=== PATIENT | female | born 1955 | race Hispanic/Latino ===

== ENCOUNTER → 2017-10-18 | Outpatient (CLI) | payer OTHER, MEDICARE ==
[~2017-10-18] MED LIST: AEC81 PO; AMLO10TA2 PO; APIX5TAB PO; ASPI-1005 PO; ATOR10 PO; FURO40TA5 PO; HUM10VIA6 SQ; INS7030 SQ; LINA5TAB PO; LISI10TA7 PO; LUBI24CA2 PO; SERT50TA12 PO; ZOLP5TAB8 PO
[2017-10-18 13:53] LABS: CREATININE 2.4 mg/dL (0.5-1.5)
== END | disposition home or self-care (01) ==
LOC: LAB 13:08
PROVIDERS: ATTEND Internal Medicine Cardiovascular Disease
DX: I65.21 Occlusion and stenosis of right carotid artery (principal)
CPT/HCPCS: 36415; 82565; 84520

== ENCOUNTER → 2017-10-19 | Outpatient (CLI) | payer OTHER, MEDICARE ==
[2017-10-19] MEDS: SODIUM CHLORIDE 0.9% 1000ML 1,000 ML IV ONE (07:16)
== END | disposition home or self-care (01) ==
LOC: RAH 06:53
PROVIDERS: ATTEND Internal Medicine Cardiovascular Disease
DX: I65.21 Occlusion and stenosis of right carotid artery (principal); E11.22 Type 2 diabetes mellitus with diabetic chronic kidney disease; I12.9 Hypertensive chronic kidney disease with stage 1 through stage 4 chronic kidney disease, or unspecified chronic kidney disease; N18.4 Chronic kidney disease, stage 4 (severe); E78.5 Hyperlipidemia, unspecified; Z95.1 Presence of aortocoronary bypass graft; Z79.4 Long term (current) use of insulin; Z79.82 Long term (current) use of aspirin; Z79.899 Other long term (current) drug therapy
CPT/HCPCS: 82948; 96360; 96361; J7030

== ENCOUNTER → 2017-12-24 | Outpatient (CLI) | payer OTHER, MEDICARE ==
[~2017-12-24] VITALS: Ht 154.9 cm; Wt 107.0 kg
[~2017-12-24] MED LIST changes: +REGADENOSON 0.4 MG/5 ML PF SYG IVP SCH
== END | disposition home or self-care (01) ==
LOC: EDSTATUS 08:00 → SHCH 09:47
PROVIDERS: ATTEND Internal Medicine Cardiovascular Disease
DX: I25.10 Atherosclerotic heart disease of native coronary artery without angina pectoris (principal); I10 Essential (primary) hypertension
CPT/HCPCS: 78452; 93017; 96374; A9500 ×2; J2785

== ENCOUNTER 2018-01-14 12:37 | Observation (INO) | payer OTHER, MEDICARE ==
[~2018-01-14] VITALS: Ht 154.9 cm; Wt 104.9 kg
[~2018-01-14 12:37] MED LIST changes: -AEC81 PO; -FURO40TA5 PO; -HUM10VIA6 SQ; -LISI10TA7 PO; -REGADENOSON 0.4 MG/5 ML PF SYG IVP SCH; -SERT50TA12 PO
[2018-01-14 13:09] LABS: EOSINOPHILS % (AUTO) 1.5 % (0.0-8.0); HEMATOCRIT 32.9 % (36-48); LYMPHOCYTES % (AUTO) 20.9 % (21.0-51.0); MEAN CORPUSCULAR HEMOGLOBIN 27.1 pg (27.0-33.0); MEAN CORPUSCULAR HGB CONC 33.2 g/dL (32.0-36.0); MEAN CORPUSCULAR VOLUME 81.5 fL (79-99); MONOCYTES % (AUTO) 6.6 % (3.0-13.0); PLATELET COUNT (AUTO) 229 K/uL (130-400); RED BLOOD CELL COUNT(AUTO) 4.04 MIL/uL (4.00-5.50); RED CELL DISTRIBUTION WIDTH 14.6 % (11.0-15.5); WHITE BLOOD COUNT (AUTO) 6.9 K/uL (4.8-10.8)
[2018-01-14 13:16] LABS: CREATININE 2.6 mg/dL (0.5-1.5)
[2018-01-14 13:22] LABS: POTASSIUM 6.7 mmol/L (3.5-5.1)
[2018-01-14] MEDS ORDERED: SODIUM POLYSTYRENE SULFONATE 15 GM/60 ML ML ONE (13:52)
[2018-01-14 14:45] VITALS: BP 162/76
[2018-01-14] MEDS ORDERED: CLONIDINE HCL 0.1 MG TABLET PO PRN (15:00)
[2018-01-14] MEDS ORDERED: ACETAMINOPHEN 325 MG TAB PO PRN ×2 (15:00)
[2018-01-14] MEDS ORDERED: LACTULOSE 20 GM/30 ML UDCUP PO PRN (15:00)
[2018-01-14 16:00] VITALS: BP 175/78
[2018-01-14 16:17] LABS: APPEARANCE,URINE Clear (CLEAR); BILIRUBIN,URINE Negative (NEGATIVE); COLOR,URINE Yellow (YELLOW); GLUCOSE, URINE (UA) TRACE mg/dL (NEGATIVE); KETONES,URINE Negative (NEGATIVE); LEUKOCYTE ESTERASE ,URINE Trace (NEGATIVE); NITRATE,URINE Negative (NEGATIVE); OCCULT BLOOD,URINE Small (NEGATIVE); PH,URINE 6.5 (5.0-8.0); PROTEIN,URINE >=1000 (NEGATIVE); UROBILINOGEN,URINE 0.2 mg/dL (0.2-1.0)
[2018-01-14 16:27] LABS: BACTERIA,URINE Few /HPF (None Seen); MUCUS,URINE Rare LPF (None Seen); RBC,URINE 0-1 /HPF (0-1)
[2018-01-14] MEDS: INSULIN HUMULIN R 100 UNIT/ML 3ML SQ SCH ×2 (16:30→20:16)
[2018-01-14 19:32] VITALS: BP 174/81
[2018-01-14] MEDS ORDERED: SODIUM POLYSTYRENE SULFONATE 15 GM/60 ML ML PO PRN (19:45)
[2018-01-14 21:18] LABS: CREATININE 2.7 mg/dL (0.5-1.5); POTASSIUM 5.9 mmol/L (3.5-5.1)
[2018-01-14] MEDS ORDERED: CEFTRIAXONE 1GM/D5W 50ML 50 ML IV SCH (22:00)
[2018-01-14] MEDS ORDERED: LUBIPROSTONE 24 MCG CAP PO PRN (22:15)
[2018-01-14 23:23] VITALS: BP 150/77
[2018-01-15] VITALS (12 sets, daily range): BP systolic 101–170; BP diastolic 57–76
[2018-01-15 04:14] LABS: HEMOGLOBIN A1C 8.5 % (4.0-6.0)
[2018-01-15 04:34] LABS: ALBUMIN 2.3 g/dL (3.5-5.0); BILIRUBIN,TOTAL 0.2 mg/dL (0.2-1.0); CREATININE 2.5 mg/dL (0.5-1.5); MAGNESIUM 1.8 mg/dL (1.80-2.40); PHOSPHORUS 3.9 mg/dL (2.5-4.9); POTASSIUM 5.4 mmol/L (3.5-5.1); THYROID STIMULATING HORMONE 2.87 uIU/mL (0.36-3.74); TOTAL PROTEIN, SERUM 6.5 g/dL (6.0-8.3); URIC ACID 6.4 mg/dL (2.6-7.2)
[2018-01-15 04:40] LABS: % IRON SATURATION 24.7 % (22-44)
[2018-01-15] MEDS: INSULIN HUMULIN R 100 UNIT/ML 3ML SQ SCH ×4 (05:59→20:39)
[2018-01-15] MEDS: INSULIN HUMULIN 70/30 100 UNIT/ML 3ML SQ SCH (06:19)
[2018-01-15] MEDS ORDERED: ACETAMINOPHEN-CODEINE 300/30MG TAB PO PRN (07:30)
[2018-01-15] MEDS ORDERED: HYDRALAZINE HCL 20 MG/ML VIAL IV PRN (07:30)
[2018-01-15] MEDS ORDERED: ACETAMINOPHEN 325 MG TAB PO PRN ×2 (07:30)
[2018-01-15] MEDS ORDERED: LACTULOSE 20 GM/30 ML UDCUP PO PRN (07:30)
[2018-01-15] MEDS ORDERED: ONDANSETRON HCL 4 MG/2 ML VIAL IV PRN (07:30)
[2018-01-15] MEDS ORDERED: MORPHINE SULFATE 2 MG/ML 1ML SYG IV PRN (07:30)
[2018-01-15] MEDS ORDERED: MAG HYDROX/AL HYDROX/SIMETH ES 30 ML SUSP UDCUP PO PRN (07:30)
[2018-01-15] MEDS ORDERED: GUAIFENESIN-DM 200/20 MG 10 ML PO PRN (07:30)
[2018-01-15] MEDS ORDERED: NITROGLYCERIN 0.4 MG SL TAB SL PRN (07:30)
[2018-01-15] MEDS: AMLODIPINE BESYLATE 5 MG TAB PO SCH (08:54)
[2018-01-15] MEDS: ASPIRIN 81MG TAB.CHEW PO SCH (08:54)
[2018-01-15] MEDS: CEFTRIAXONE SODIUM 1 GM IVP SCH (08:56)
[2018-01-15] MEDS ORDERED: FAMOTIDINE 20MG TAB 20 MG TAB PO SCH (09:00)
[2018-01-15] MEDS ORDERED: APIXABAN 5 MG TABLET PO SCH (09:00)
[2018-01-15] MEDS: FOLIC ACID/VITAMIN B COMP W-C 1 MG CAPSULE PO SCH (09:00)
[2018-01-15] MEDS: FAMOTIDINE 20MG TAB 20 MG TAB PO SCH (09:00)
[2018-01-15] MEDS: LINAGLIPTIN 5 MG TABLET PO SCH (09:00)
[2018-01-15] MEDS ORDERED: SODIUM CHLORIDE 0.9% 1000ML 1,000 ML IV SCH (11:45)
[2018-01-15] MEDS ORDERED: ONDANSETRON HCL MDV 20ML 2 MG/ML VIAL IV PRN (12:42)
[2018-01-15 14:38] LABS: CREATININE 2.5 mg/dL (0.5-1.5); POTASSIUM 5.5 mmol/L (3.5-5.1)
[2018-01-15] MEDS: SODIUM CHLORIDE 0.9% 1000ML 1,000 ML IV SCH ×2 (17:34→23:25)
[2018-01-15] MEDS: RANOLAZINE 500 MG TAB.SR.12H PO SCH (19:59)
[2018-01-15] MEDS: METOPROLOL TARTRATE 25 MG TAB PO SCH (19:59)
[2018-01-15] MEDS ORDERED: ATORVASTATIN CALCIUM 10 MG TABLET PO SCH (21:00)
[2018-01-16 03:59] LABS: HEMATOCRIT 31.1 % (36-48); MEAN CORPUSCULAR HEMOGLOBIN 27.4 pg (27.0-33.0); MEAN CORPUSCULAR HGB CONC 33.2 g/dL (32.0-36.0); MEAN CORPUSCULAR VOLUME 82.3 fL (79-99); PLATELET COUNT (AUTO) 206 K/uL (130-400); RED BLOOD CELL COUNT(AUTO) 3.78 MIL/uL (4.00-5.50); RED CELL DISTRIBUTION WIDTH 14.6 % (11.0-15.5)
[2018-01-16 04:01] VITALS: BP 154/70
[2018-01-16 04:17] LABS: CREATININE 2.6 mg/dL (0.5-1.5); POTASSIUM 5.2 mmol/L (3.5-5.1)
[2018-01-16] MEDS: INSULIN HUMULIN 70/30 100 UNIT/ML 3ML SQ SCH (05:43)
[2018-01-16] MEDS: INSULIN HUMULIN R 100 UNIT/ML 3ML SQ SCH (05:44)
[2018-01-16 07:50] VITALS: BP 138/71
[2018-01-16] MEDS: FAMOTIDINE 20MG TAB 20 MG TAB PO SCH (07:50)
[2018-01-16] MEDS: AMLODIPINE BESYLATE 5 MG TAB PO SCH (07:50)
[2018-01-16] MEDS: RANOLAZINE 500 MG TAB.SR.12H PO SCH (07:50)
[2018-01-16] MEDS: FOLIC ACID/VITAMIN B COMP W-C 1 MG CAPSULE PO SCH (07:50)
[2018-01-16] MEDS: LINAGLIPTIN 5 MG TABLET PO SCH (07:50)
[2018-01-16] MEDS: METOPROLOL TARTRATE 25 MG TAB PO SCH (07:50)
[2018-01-16] MEDS: ASPIRIN 81MG TAB.CHEW PO SCH (07:50)
[2018-01-16] MEDS: CEFTRIAXONE SODIUM 1 GM IVP SCH (07:51)
== END 2018-01-16 11:05 | disposition home or self-care (01) ==
LOC: EDH 12:37 → EDHIP 13:49 → INTOOBSV 13:49 → 2DH 14:43
PROVIDERS: ADMIT Family Medicine; ATTEND Family Medicine
DX: I25.119 Atherosclerotic heart disease of native coronary artery with unspecified angina pectoris (principal); I65.21 Occlusion and stenosis of right carotid artery; E87.5 Hyperkalemia; N17.9 Acute kidney failure, unspecified; N39.0 Urinary tract infection, site not specified; I12.9 Hypertensive chronic kidney disease with stage 1 through stage 4 chronic kidney disease, or unspecified chronic kidney disease; N18.3 Chronic kidney disease, stage 3 (moderate); E78.5 Hyperlipidemia, unspecified; E11.22 Type 2 diabetes mellitus with diabetic chronic kidney disease; D64.9 Anemia, unspecified; E11.21 Type 2 diabetes mellitus with diabetic nephropathy; E11.51 Type 2 diabetes mellitus with diabetic peripheral angiopathy without gangrene; I35.0 Nonrheumatic aortic (valve) stenosis; Z79.01 Long term (current) use of anticoagulants; Z79.82 Long term (current) use of aspirin; Z79.899 Other long term (current) drug therapy; Z95.1 Presence of aortocoronary bypass graft; Z82.49 Family history of ischemic heart disease and other diseases of the circulatory system
CPT/HCPCS: 36223; 36415 ×5; 71045; 76770; 80048 ×4; 80053; 80061; 81001 ×2; 82728; 82948 ×7; 83036; 83540; 83550; 83735; 84100; 84132 ×2; 84443; 84550; 85025 ×2; 85027; 85610; 85730; 93005 ×2; 93459; 96365; 96372 ×2; 96375; 96376; 99285; A4218; C1760; C1894; G0378 ×45; J0696 ×3; J1644; J1815 ×4; J3490 ×4; J7030; Q9967; 36222; 36226

== ENCOUNTER 2018-02-08 23:36 | Emergency (ER) | payer OTHER, MEDICARE ==
[~2018-02-08 23:36] MED LIST changes: -ZOLP5TAB8 PO
[2018-02-09 00:02] LABS: BASOPHILS % (AUTO) 0.8 % (0.0-5.0); EOSINOPHILS % (AUTO) 1.1 % (0.0-8.0); HEMATOCRIT 31.8 % (36-48); LYMPHOCYTES % (AUTO) 15.5 % (21.0-51.0); MEAN CORPUSCULAR HEMOGLOBIN 27.4 pg (27.0-33.0); MEAN CORPUSCULAR HGB CONC 33.4 g/dL (32.0-36.0); MONOCYTES % (AUTO) 7.8 % (3.0-13.0); NEUTROPHILS % (AUTO) 74.8 % (40.0-77.0); PLATELET COUNT (AUTO) 247 K/uL (130-400); RED BLOOD CELL COUNT(AUTO) 3.87 MIL/uL (4.00-5.50); RED CELL DISTRIBUTION WIDTH 14.8 % (11.0-15.5); WHITE BLOOD COUNT (AUTO) 10.1 K/uL (4.8-10.8)
[2018-02-09 00:10] LABS: APPEARANCE,URINE Clear (CLEAR); BILIRUBIN,URINE Negative (NEGATIVE); COLOR,URINE Yellow (YELLOW); GLUCOSE, URINE (UA) 500 mg/dL (NEGATIVE); KETONES,URINE Negative (NEGATIVE); LEUKOCYTE ESTERASE ,URINE Negative (NEGATIVE); NITRATE,URINE Negative (NEGATIVE); OCCULT BLOOD,URINE Small (NEGATIVE); PH,URINE 6.5 (5.0-8.0); PROTEIN,URINE >=1000 (NEGATIVE); UROBILINOGEN,URINE 0.2 mg/dL (0.2-1.0)
[2018-02-09 00:11] LABS: CREATININE 2.6 mg/dL (0.5-1.5); POTASSIUM 5.2 mmol/L (3.5-5.1)
[2018-02-09 00:14] LABS: INR 0.96 (0.85-1.15); PARTIAL THROMBOPLASTIN TIME 28.5 SEC (26.3-35.5); PROTHROMBIN TIME 10.1 SEC (9.6-11.6)
[2018-02-09 00:16] LABS: ALBUMIN 2.6 g/dL (3.5-5.0); BILIRUBIN,TOTAL 0.4 mg/dL (0.2-1.0); TOTAL PROTEIN, SERUM 7.8 g/dL (6.0-8.3)
[2018-02-09 00:25] LABS: BACTERIA,URINE Rare /HPF (None Seen); SQUAMOUS EPITHELIAL CELL,UR 0-2 /HPF (0-2)
[2018-02-09 00:50] LABS: B-TYPE NATRIURETIC PEPTIDE 966 pg/mL (0-100)
[2018-02-09] MEDS ORDERED: ASPIRIN 325 MG TABLET ONE (01:38)
[2018-02-09] MEDS ORDERED: FUROSEMIDE 10 MG/ML 4ML VIAL ONE (01:38)
[2018-02-09] MEDS ORDERED: NITROGLYCERIN 1GM/1 INCH PACKET TD ONE (01:39)
== END 2018-02-09 02:56 | disposition home or self-care (01) ==
LOC: EDH 23:36
DX: I50.41 Acute combined systolic (congestive) and diastolic (congestive) heart failure (principal); N28.9 Disorder of kidney and ureter, unspecified; E11.9 Type 2 diabetes mellitus without complications; I10 Essential (primary) hypertension; E78.5 Hyperlipidemia, unspecified; Z95.1 Presence of aortocoronary bypass graft; Z98.51 Tubal ligation status; Z79.899 Other long term (current) drug therapy
CPT/HCPCS: 36415; 71045; 80053; 81001; 82550; 83880; 84484 ×2; 85025; 85610; 85730; 93005 ×2; 96374; 99285; J1940

== ENCOUNTER → 2018-03-13 | Outpatient (CLI) | payer OTHER, MEDICARE | END | disposition home or self-care (01) | LOC: SHCH 13:33 | PROVIDERS: ATTEND Internal Medicine Cardiovascular Disease | DX: I82.403 Acute embolism and thrombosis of unspecified deep veins of lower extremity, bilateral (principal); I82.409 Acute embolism and thrombosis of unspecified deep veins of unspecified lower extremity; E11.9 Type 2 diabetes mellitus without complications; I10 Essential (primary) hypertension; E78.5 Hyperlipidemia, unspecified | CPT/HCPCS: 93970 ==

== ENCOUNTER 2019-01-20 08:41 | Observation (INO) | payer OTHER, MEDICARE ==
[~2019-01-20] VITALS: Ht 154.9 cm; Wt 92.0 kg
[~2019-01-20 08:41] MED LIST changes: -AMLO10TA2 PO; +AMLO10TA7 PO; -APIX5TAB PO; +CLOP75TA32 PO; -LINA5TAB PO; +LISI-613 PO; +TIZA4TAB4 PO; +ZOLP5TAB8 PO
[2019-01-20 09:05] LABS: BASOPHILS % (AUTO) 0.9 % (0.0-5.0); EOSINOPHILS % (AUTO) 2.8 % (0.0-8.0); HEMATOCRIT 34.8 % (36-48); LYMPHOCYTES % (AUTO) 13.7 % (21.0-51.0); MEAN CORPUSCULAR HEMOGLOBIN 28.5 pg (27.0-33.0); MEAN CORPUSCULAR HGB CONC 32.6 g/dL (32.0-36.0); MEAN CORPUSCULAR VOLUME 87.2 fL (79-99); MONOCYTES % (AUTO) 7.2 % (3.0-13.0); NEUTROPHILS % (AUTO) 75.4 % (40.0-77.0); PLATELET COUNT (AUTO) 189 K/uL (130-400); RED BLOOD CELL COUNT(AUTO) 3.99 MIL/uL (4.00-5.50); RED CELL DISTRIBUTION WIDTH 14.2 % (11.0-15.5); WHITE BLOOD COUNT (AUTO) 7.3 K/uL (4.8-10.8)
[2019-01-20 09:45] LABS: B-TYPE NATRIURETIC PEPTIDE 851 pg/mL (0-100)
[2019-01-20 11:54] LABS: BILIRUBIN,TOTAL 0.4 mg/dL (0.2-1.0); CREATININE 5.5 mg/dL (0.5-1.5); POTASSIUM 4.8 mmol/L (3.5-5.1); TOTAL PROTEIN, SERUM 7.5 g/dL (6.0-8.3)
--- NOTE | 2019-01-20 14:00 | NUR ---
REPORT RECEIVED FROM AL LLOYD (ED). PATIENT ADMITTED UNDER DR. HARJIT KATZ FOR FLUID OVERLOAD AND PULMONARY EDEMA. PATIENT SCHEDULED FOR DIALYSIS TODAY. 20G PIV TO RIGHT HAND. DR. TESFAYE MORIN CONSULTED.
[2019-01-20 14:30] VITALS: BP 150/59
[2019-01-20] MEDS ORDERED: GLUCAGON 1MG KIT 1 MG ML IM PRN (16:00)
[2019-01-20] MEDS ORDERED: DEXTROSE 50%-WATER 50 ML DISP.SYRIN IV PRN (16:00)
[2019-01-20] MEDS: PANTOPRAZOLE SODIUM 40 MG TABLET.DR PO SCH (16:06)
[2019-01-20] MEDS: ENOXAPARIN SODIUM 40 MG/0.4 ML SYRINGE SQ SCH (16:06)
[2019-01-20] MEDS ORDERED: SODIUM CHLORIDE 0.9% 10 ML VIAL IVP PRN (16:15)
[2019-01-20] MEDS: INSULIN HUMULIN R 100 UNIT/ML 3ML SQ SCH ×2 (16:30→21:00)
[2019-01-20] MEDS ORDERED: ACETAMINOPHEN 325 MG TAB PO PRN (18:45)
[2019-01-20] MEDS ORDERED: 0.9% SODIUM CHLORIDE 1000 ML IV BAG IV PRN (18:45)
[2019-01-20] MEDS ORDERED: SODIUM CHLORIDE 0.9% 1000ML 1,000 ML IV PRN (18:45)
[2019-01-20] MEDS ORDERED: HEPARIN SODIUM 5000UNIT/ML 1ML VIAL IJ PRN (18:45)
[2019-01-20 20:00] VITALS: BP_SYST 138; BP_SYST 174; BP_DIAS 76; BP_DIAS 88
[2019-01-21] VITALS: BP 139/72
[2019-01-21 04:00] VITALS: BP 138/68
[2019-01-21 05:25] LABS: HEMATOCRIT 31.9 % (36-48); MEAN CORPUSCULAR HEMOGLOBIN 29.1 pg (27.0-33.0); MEAN CORPUSCULAR HGB CONC 33.6 g/dL (32.0-36.0); MEAN CORPUSCULAR VOLUME 86.6 fL (79-99); PLATELET COUNT (AUTO) 192 K/uL (130-400); RED BLOOD CELL COUNT(AUTO) 3.68 MIL/uL (4.00-5.50); RED CELL DISTRIBUTION WIDTH 14.3 % (11.0-15.5); WHITE BLOOD COUNT (AUTO) 5.7 K/uL (4.8-10.8)
[2019-01-21] MEDS: INSULIN HUMULIN R 100 UNIT/ML 3ML SQ SCH ×3 (06:13→11:30)
[2019-01-21 08:00] VITALS: BP 128/58
[2019-01-21] MEDS: ENOXAPARIN SODIUM 40 MG/0.4 ML SYRINGE SQ SCH (09:00)
[2019-01-21] MEDS: PANTOPRAZOLE SODIUM 40 MG TABLET.DR PO SCH (09:00)
[2019-01-21 12:00] VITALS: BP 118/64
--- NOTE | 2019-01-21 14:50 | NUR ---
DISCHARGE PATIENT GIVEN DISCHARGE INSTRUCTIONS VIA TEACH BACK. 20G PIV TO RIGHT HAND DISCONTINUED, TP INTACT. PATIENT TO FOLLOW UP WITH DR. JACQUES AND KEEP DIALYSIS SCHEDULE. PATIENT STABLE AT THIS TIME. DAUGHTER AT BEDSIDE TO TRANSPORT PATIENT HOME.
[2019-01-22 11:19] LABS: HEPATITIS Bs ANTIGEN SCREEN P Negative (Negative)
== END 2019-01-21 14:58 | disposition home or self-care (01) ==
LOC: EDH 08:41 → EDHIP 12:07 → 3CH 13:50
PROVIDERS: ADMIT Internal Medicine; ATTEND Internal Medicine
DX: J81.1 Chronic pulmonary edema (principal); I12.0 Hypertensive chronic kidney disease with stage 5 chronic kidney disease or end stage renal disease; N18.6 End stage renal disease; E11.22 Type 2 diabetes mellitus with diabetic chronic kidney disease; I25.10 Atherosclerotic heart disease of native coronary artery without angina pectoris; D64.9 Anemia, unspecified; E87.70 Fluid overload, unspecified; Z91.11 Patient's noncompliance with dietary regimen; Z82.49 Family history of ischemic heart disease and other diseases of the circulatory system; Z83.3 Family history of diabetes mellitus; Z91.19 Patient's noncompliance with other medical treatment and regimen; Z95.1 Presence of aortocoronary bypass graft; Z99.2 Dependence on renal dialysis
CPT/HCPCS: G0257 ×46; 36415; 71045; 80053; 82948; 83880; 84484; 85025; 85027; 86706; 87340; 87520; 90935; 93005; 99291; G0378; J1644

== ENCOUNTER 2019-04-04 16:10 | Emergency (ER) | payer OTHER, MEDICARE ==
[~2019-04-04 16:10] MED LIST changes: -TIZA4TAB4 PO
[2019-04-04] MEDS ORDERED: LIDOCAINE HCL 1% MDV 50ML VIAL ONE (17:22)
== END 2019-04-04 19:00 | disposition home or self-care (01) ==
LOC: EDH 16:10
DX: T82.41XA Breakdown (mechanical) of vascular dialysis catheter, initial encounter (principal); I12.0 Hypertensive chronic kidney disease with stage 5 chronic kidney disease or end stage renal disease; E11.22 Type 2 diabetes mellitus with diabetic chronic kidney disease; N18.6 End stage renal disease; E78.5 Hyperlipidemia, unspecified; I25.10 Atherosclerotic heart disease of native coronary artery without angina pectoris; Z99.2 Dependence on renal dialysis
CPT/HCPCS: 36589; 99284; J3490

== ENCOUNTER 2019-04-07 09:26 | Day surgery (SDC) | payer OTHER, MEDICARE ==
[~2019-04-07] VITALS: Ht 154.9 cm; Wt 93.0 kg
[2019-04-07 09:50] VITALS: BP 156/85
[2019-04-07 10:06] LABS: BASOPHILS % (AUTO) 1.2 % (0.0-5.0); EOSINOPHILS % (AUTO) 2.3 % (0.0-8.0); HEMATOCRIT 34.6 % (36-48); LYMPHOCYTES % (AUTO) 16.9 % (21.0-51.0); MEAN CORPUSCULAR HEMOGLOBIN 29.2 pg (27.0-33.0); MEAN CORPUSCULAR HGB CONC 32.5 g/dL (32.0-36.0); MEAN CORPUSCULAR VOLUME 90.1 fL (79-99); MONOCYTES % (AUTO) 7.2 % (3.0-13.0); NEUTROPHILS % (AUTO) 72.4 % (40.0-77.0); NUCLEATED RED BLOOD CELLS 0.2 % (0.0-0.19); PLATELET COUNT (AUTO) 262 K/uL (130-400); RED BLOOD CELL COUNT(AUTO) 3.84 MIL/uL (4.00-5.50); RED CELL DISTRIBUTION WIDTH 17.1 % (11.0-15.5); WHITE BLOOD COUNT (AUTO) 7.8 K/uL (4.8-10.8)
[2019-04-07 10:15] LABS: CREATININE 6.1 mg/dL (0.5-1.5); POTASSIUM 4.5 mmol/L (3.5-5.1)
[2019-04-07 10:18] LABS: INR 1.02 (0.85-1.15); PARTIAL THROMBOPLASTIN TIME 26.1 SEC (26.3-35.5); PROTHROMBIN TIME 10.7 SEC (9.6-11.6)
[2019-04-07] MEDS ORDERED: SODIUM CHLORIDE 0.9% 1000ML 1,000 ML IV ONE (10:32)
[2019-04-07] MEDS ORDERED: LIDOCAINE HCL 1% MDV 50ML VIAL ONE (11:05)
[2019-04-07] MEDS ORDERED: IODIXANOL 320 MG/ML 100 ML VIAL ONE (12:21)
[2019-04-07 13:15] VITALS: BP 125/59
[2019-04-07 13:45] VITALS: BP 130/70
== END 2019-04-07 14:00 | disposition home or self-care (01) ==
LOC: DAH 09:26
PROVIDERS: ATTEND Emergency Medicine
DX: T82.898A Other specified complication of vascular prosthetic devices, implants and grafts, initial encounter (principal); Y83.8 Other surgical procedures as the cause of abnormal reaction of the patient, or of later complication, without mention of misadventure at the time of the procedure; Y92.89 Other specified places as the place of occurrence of the external cause; I25.10 Atherosclerotic heart disease of native coronary artery without angina pectoris; I12.0 Hypertensive chronic kidney disease with stage 5 chronic kidney disease or end stage renal disease; E11.22 Type 2 diabetes mellitus with diabetic chronic kidney disease; N18.6 End stage renal disease; E78.5 Hyperlipidemia, unspecified; Z99.2 Dependence on renal dialysis; Z79.899 Other long term (current) drug therapy; Z79.82 Long term (current) use of aspirin; Z79.4 Long term (current) use of insulin; Z98.51 Tubal ligation status; Z98.890 Other specified postprocedural states; Z82.49 Family history of ischemic heart disease and other diseases of the circulatory system; Z83.3 Family history of diabetes mellitus
CPT/HCPCS: 36415; 36558; 77001; 80048; 82948; 85025; 85610; 85730; A4606; C1750; C1769 ×2; C1894; J1644 ×2; J3490; J7030; Q9967; 37248

== ENCOUNTER 2019-04-13 17:34 | Emergency (ER) | payer OTHER, MEDICARE ==
[2019-04-13 18:15] LABS: BASOPHILS % (AUTO) 0.7 % (0.0-5.0); EOSINOPHILS % (AUTO) 1.1 % (0.0-8.0); HEMATOCRIT 35.7 % (36-48); LYMPHOCYTES % (AUTO) 14.7 % (21.0-51.0); MEAN CORPUSCULAR HEMOGLOBIN 29.4 pg (27.0-33.0); MEAN CORPUSCULAR HGB CONC 32.5 g/dL (32.0-36.0); MEAN CORPUSCULAR VOLUME 90.4 fL (79-99); MONOCYTES % (AUTO) 7.6 % (3.0-13.0); NEUTROPHILS % (AUTO) 75.9 % (40.0-77.0); NUCLEATED RED BLOOD CELLS 0.1 % (0.0-0.19); PLATELET COUNT (AUTO) 203 K/uL (130-400); RED BLOOD CELL COUNT(AUTO) 3.95 MIL/uL (4.00-5.50); WHITE BLOOD COUNT (AUTO) 5.8 K/uL (4.8-10.8)
[2019-04-13 18:23] LABS: CREATININE 7.6 mg/dL (0.5-1.5); POTASSIUM 4.7 mmol/L (3.5-5.1)
[2019-04-13 18:24] LABS: INR 1.01 (0.85-1.15); PARTIAL THROMBOPLASTIN TIME 24.2 SEC (26.3-35.5); PROTHROMBIN TIME 10.6 SEC (9.6-11.6)
[2019-04-13 18:28] LABS: ALBUMIN 3.3 g/dL (3.5-5.0); BILIRUBIN,TOTAL 0.7 mg/dL (0.2-1.0); TOTAL PROTEIN, SERUM 7.6 g/dL (6.0-8.3)
[2019-04-13 19:01] LABS: B-TYPE NATRIURETIC PEPTIDE 2380 pg/mL (0-100)
== END 2019-04-13 20:01 | disposition home or self-care (01) ==
LOC: EDH 17:34
DX: I12.0 Hypertensive chronic kidney disease with stage 5 chronic kidney disease or end stage renal disease (principal); E11.22 Type 2 diabetes mellitus with diabetic chronic kidney disease; N18.6 End stage renal disease; R06.00 Dyspnea, unspecified; I25.10 Atherosclerotic heart disease of native coronary artery without angina pectoris; E78.5 Hyperlipidemia, unspecified; Z99.2 Dependence on renal dialysis; Z79.4 Long term (current) use of insulin
CPT/HCPCS: 36415; 71045; 80053; 82550; 83880; 84484; 85025; 85610; 85730; 93005

== ENCOUNTER 2019-08-12 15:11 | Emergency (ER) | payer OTHER, MEDICARE ==
[2019-08-12 17:15] LABS: CREATININE 6.7 mg/dL (0.5-1.5); POTASSIUM 4.4 mmol/L (3.5-5.1)
[2019-08-12 17:31] LABS: BASOPHILS % (AUTO) 1.1 % (0.0-5.0); EOSINOPHILS % (AUTO) 3.5 % (0.0-8.0); HEMATOCRIT 35.5 % (36-48); LYMPHOCYTES % (AUTO) 11.8 % (21.0-51.0); MEAN CORPUSCULAR HEMOGLOBIN 30.4 pg (27.0-33.0); MEAN CORPUSCULAR HGB CONC 32.6 g/dL (32.0-36.0); MEAN CORPUSCULAR VOLUME 93.2 fL (79-99); MONOCYTES % (AUTO) 10.1 % (3.0-13.0); NEUTROPHILS % (AUTO) 73.5 % (40.0-77.0); NUCLEATED RED BLOOD CELLS 0.2 % (0.0-0.19); PLATELET COUNT (AUTO) 144 K/uL (130-400); RED BLOOD CELL COUNT(AUTO) 3.81 MIL/uL (4.00-5.50); RED CELL DISTRIBUTION WIDTH 17.1 % (11.0-15.5); WHITE BLOOD COUNT (AUTO) 4.7 K/uL (4.8-10.8)
== END 2019-08-12 18:07 | disposition home or self-care (01) ==
LOC: EDH 15:11
DX: J20.8 Acute bronchitis due to other specified organisms (principal); I12.0 Hypertensive chronic kidney disease with stage 5 chronic kidney disease or end stage renal disease; E11.22 Type 2 diabetes mellitus with diabetic chronic kidney disease; N18.6 End stage renal disease; I25.10 Atherosclerotic heart disease of native coronary artery without angina pectoris; Z99.2 Dependence on renal dialysis
CPT/HCPCS: 36415; 71046; 80048; 84484; 85025; 93005

== ENCOUNTER → 2019-09-22 | Outpatient (CLI) | payer OTHER, MEDICARE ==
[~2019-09-22] MED LIST changes: +IOHEXOL-350 50ML VIAL IV ONE
== END | disposition home or self-care (01) ==
LOC: RAH 08:55
PROVIDERS: ATTEND Internal Medicine Cardiovascular Disease
DX: I65.23 Occlusion and stenosis of bilateral carotid arteries (principal); Z98.890 Other specified postprocedural states
CPT/HCPCS: 70498; Q9967

== ENCOUNTER → 2019-10-22 | Outpatient (CLI) | payer OTHER, MEDICARE ==
[~2019-10-22] MED LIST changes: -IOHEXOL-350 50ML VIAL IV ONE
== END | disposition home or self-care (01) ==
LOC: SHCH 08:43
PROVIDERS: ATTEND Internal Medicine Cardiovascular Disease
DX: I08.3 Combined rheumatic disorders of mitral, aortic and tricuspid valves (principal); R01.1 Cardiac murmur, unspecified
CPT/HCPCS: 93306

== ENCOUNTER 2019-11-25 05:37 | Day surgery (SDC) | payer OTHER, MEDICARE ==
[2019-11-20 11:26] LABS: BASOPHILS % (AUTO) 0.2 % (0.0-5.0); EOSINOPHILS % (AUTO) 0.6 % (0.0-8.0); HEMATOCRIT 37.4 % (36-48); LYMPHOCYTES % (AUTO) 10.4 % (21.0-51.0); MEAN CORPUSCULAR HEMOGLOBIN 29.8 pg (27.0-33.0); MEAN CORPUSCULAR HGB CONC 30.2 g/dL (32.0-36.0); MEAN CORPUSCULAR VOLUME 98.7 fL (79-99); MONOCYTES % (AUTO) 7.5 % (3.0-13.0); PLATELET COUNT (AUTO) 129 K/uL (130-400); RED BLOOD CELL COUNT(AUTO) 3.79 MIL/uL (4.00-5.50); RED CELL DISTRIBUTION WIDTH 13.8 % (11.0-15.5); WHITE BLOOD COUNT (AUTO) 8.7 K/uL (4.8-10.8)
[2019-11-20 11:27] VITALS: BP 124/70
[2019-11-20 11:27] LABS: APPEARANCE,URINE Clear (CLEAR); BILIRUBIN,URINE Negative (NEGATIVE); COLOR,URINE Yellow (YELLOW); GLUCOSE, URINE (UA) 500 mg/dL (NEGATIVE); KETONES,URINE Negative (NEGATIVE); LEUKOCYTE ESTERASE ,URINE Negative (NEGATIVE); NITRATE,URINE Negative (NEGATIVE); OCCULT BLOOD,URINE Small (NEGATIVE); PH,URINE 6.5 (5.0-8.0); PROTEIN,URINE >=1000 mg/dL (NEGATIVE)
[2019-11-20 11:35] LABS: CREATININE 5.3 mg/dL (0.5-1.5); POTASSIUM 4.1 mmol/L (3.5-5.1)
[2019-11-20 11:43] LABS: INR 1.12 (0.85-1.15); PARTIAL THROMBOPLASTIN TIME 26.4 SEC (26.3-35.5); PROTHROMBIN TIME 11.7 SEC (9.6-11.6)
[2019-11-20 11:46] LABS: BACTERIA,URINE Few /HPF (None Seen); YEAST,URINE BUDDING Few /HPF (None Seen)
--- NOTE | 2019-11-24 14:52 | NUR ---
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 I ALSO ADVISED GLORY BUTLER OF CHEST XRAY RESULTS OF LEFT LINGULAR CONSOLIDATION AND OR MASS AND RETROCARDIAC OPACITY, NO NEW ORDERS IN REGARDS TO CHEST XRAY.
[2019-11-25] VITALS (12 sets, daily range): BP systolic 141–155; BP diastolic 47–67
[~2019-11-25] VITALS: Ht 162.6 cm; Wt 87.5 kg
[~2019-11-25 05:37] MED LIST changes: -AMLO10TA7 PO; +APIX5TAB PO; -ASPI-1005 PO; -ATOR10 PO; -CLOP75TA32 PO; -LISI-613 PO; -LUBI24CA2 PO; +METO50TA9 PO; +METO5TAB7 PO
[2019-11-25] MEDS ORDERED: ATOR10 PO (06:24)
[2019-11-25] MEDS ORDERED: HUM10VIA SQ (06:56)
[2019-11-25] MEDS ORDERED: HEPARIN SODIUM 1000UNIT/ML 10ML VIAL ONE (07:08)
[2019-11-25] MEDS ORDERED: IODIXANOL 320 MG/ML 100 ML VIAL ONE (07:08)
[2019-11-25] MEDS ORDERED: LIDOCAINE HCL 2% 20ML ONE (07:08)
[2019-11-25] MEDS ORDERED: SODIUM BICARB 50MEQ 50ML VIAL ONE (07:09)
[2019-11-25] MEDS ORDERED: SODIUM CHLORIDE 0.9% 1000ML 1,000 ML IV ONE (07:36)
[2019-11-25] MEDS ORDERED: IOHEXOL-350 50ML VIAL IV ONE (07:36)
[2019-11-25] MEDS ORDERED: NITROGLYCERIN 2 MG/VIAL VIAL IV ONE (08:13)
[2019-11-25] MEDS ORDERED: ASPI-555 PO (08:26)
[2019-11-25] MEDS ORDERED: DEXTROSE 50%-WATER 50 ML DISP.SYRIN IV PRN (08:30)
[2019-11-25] MEDS ORDERED: GLUCAGON 1MG KIT 1 MG ML IM PRN (08:30)
[2019-11-25] MEDS ORDERED: SODIUM CHLORIDE 0.9% 10 ML VIAL IVP SCH (08:30)
--- NOTE | 2019-11-25 09:20 | NUR ---
Blood sugar noted to be 63. Patient asymptomatic. Pt given apple juice and drank all 120 ccs. Breakfast ordered and student assisted pt in eating as pt has to lay flat for bedrest.
--- NOTE | 2019-11-25 10:55 | NUR ---
Pt ate good breakfast. Pt's blood sugar rechecked. Noted to be 110.
[2019-11-25] MEDS ORDERED: INSULIN HUMULIN R 100 UNIT/ML 3ML SQ SCH (11:30)
--- NOTE | 2019-11-25 14:40 | NUR ---
Pt discharged home, tolerating fluids/solids, voided good amount prior to discharge, ambulating well. Pt denies any severe pain, nausea or dizziness. Pt already taking baby aspirin. Pt instructed to disregard new prescription and to continue taking 81 mg daily. PT instructed in routine and emergency care of cath site, translated by her daughter. Pt and daughter verbalize understanding. Site to right groin remains soft, non-tender, dressing clean dry and intact. Pt and daughter report no further questions at this time. Addendum: 11/25/19 at 1721 by FAB POLO RN RN I was unable to get a hold of Dr. Watson's field clerk. Pt and daughter instructed to call office for 1 to 2 week follow up appointment.
--- NOTE | 2019-11-25 16:45 | NUR ---
Pt's demographics, h&P, and carotid angiogram results faxed to Dr. Cox office. Office called prior to faxing results and they stated that they would call with pt's date of appointment.
== END 2019-11-25 14:40 | disposition home or self-care (01) ==
LOC: DAH 05:37
PROVIDERS: ATTEND Internal Medicine Cardiovascular Disease
DX: I65.21 Occlusion and stenosis of right carotid artery (principal); I25.10 Atherosclerotic heart disease of native coronary artery without angina pectoris; I12.0 Hypertensive chronic kidney disease with stage 5 chronic kidney disease or end stage renal disease; E11.22 Type 2 diabetes mellitus with diabetic chronic kidney disease; N18.6 End stage renal disease; I45.10 Unspecified right bundle-branch block; Z79.82 Long term (current) use of aspirin; Z79.899 Other long term (current) drug therapy; Z79.01 Long term (current) use of anticoagulants; Z95.1 Presence of aortocoronary bypass graft; Z99.2 Dependence on renal dialysis; Z90.710 Acquired absence of both cervix and uterus; Z98.890 Other specified postprocedural states
CPT/HCPCS: 36223; 36415; 71045; 80048; 81001; 82948 ×3; 85025; 85610; 85730; 93005; A4215; A4216; A4221; A4222; A4223 ×3; A4606; A4663; C1760; C1894; J1644; J3490 ×3; J7030; Q9967

== ENCOUNTER → 2020-12-23 | Outpatient (CLI) | payer OTHER, MEDICARE ==
[~2020-12-23] MED LIST changes: +AMLO-258 PO; +ATOR10 PO; +CLOP75TA32 PO; +CYAN500T9 PO; +HUM10VIA SQ; +HYDR-3421 PO; +LUBI24CA2 PO; -METO50TA9 PO; +SERT-438 PO; +SEVE800T27 PO
== END | disposition home or self-care (01) ==
LOC: SHCH 10:00
PROVIDERS: ATTEND Internal Medicine Cardiovascular Disease
DX: I07.1 Rheumatic tricuspid insufficiency (principal); R01.1 Cardiac murmur, unspecified; E78.5 Hyperlipidemia, unspecified; E11.9 Type 2 diabetes mellitus without complications; I27.20 Pulmonary hypertension, unspecified
CPT/HCPCS: 93306; 93356

== ENCOUNTER → 2021-01-11 | Outpatient (CLI) | payer OTHER, MEDICARE | END | disposition home or self-care (01) | LOC: SHCH 10:00 | PROVIDERS: ATTEND Internal Medicine Cardiovascular Disease | DX: R01.1 Cardiac murmur, unspecified (principal); I25.10 Atherosclerotic heart disease of native coronary artery without angina pectoris | CPT/HCPCS: 93880 ==

== ENCOUNTER → 2021-01-25 | Outpatient (CLI) | payer OTHER, MEDICARE ==
[~2021-01-25] VITALS: Ht 154.9 cm; Wt 81.2 kg
[~2021-01-25] MED LIST changes: +REGADENOSON 0.4 MG/5 ML PF SYG IVP SCH
== END | disposition home or self-care (01) ==
LOC: SHCH 08:46
PROVIDERS: ATTEND Internal Medicine Cardiovascular Disease
DX: I25.10 Atherosclerotic heart disease of native coronary artery without angina pectoris (principal)
CPT/HCPCS: 78452; 93017; 96374; A9500 ×2

== ENCOUNTER 2021-12-31 18:13 | Observation (INO) | payer OTHER, MEDICARE ==
[~2021-12-31] VITALS: Ht 152.4 cm; Wt 81.7 kg
[~2021-12-31 18:13] MED LIST changes: -REGADENOSON 0.4 MG/5 ML PF SYG IVP SCH
[2021-12-31 19:12] LABS: HEMATOCRIT 35.4 % (36-48); LYMPHOCYTES % (AUTO) 10.4 % (21.0-51.0); MEAN CORPUSCULAR HEMOGLOBIN 31.5 pg (27.0-33.0); MEAN CORPUSCULAR HGB CONC 31.6 g/dL (32.0-36.0); MEAN CORPUSCULAR VOLUME 99.4 fL (79-99); NEUTROPHILS % (AUTO) 68.9 % (40.0-77.0); PLATELET COUNT (AUTO) 250 K/uL (130-400); RED BLOOD CELL COUNT(AUTO) 3.56 MIL/uL (4.00-5.50); RED CELL DISTRIBUTION WIDTH 17.4 % (11.0-15.5)
[2021-12-31 19:19] LABS: INR 1.09 (0.85-1.15); PROTHROMBIN TIME 11.8 SEC (9.6-11.6)
[2021-12-31 19:20] LABS: PARTIAL THROMBOPLASTIN TIME 28.4 SEC (26.3-35.5)
[2021-12-31 19:22] LABS: CREATININE 4.6 mg/dL (0.5-1.5); POTASSIUM 4.6 mmol/L (3.5-5.1)
[2021-12-31 19:27] LABS: ALBUMIN 1.7 g/dL (3.5-5.0); BILIRUBIN,TOTAL 0.4 mg/dL (0.2-1.0); TOTAL PROTEIN, SERUM 6.6 g/dL (6.0-8.3)
[2021-12-31] MEDS ORDERED: NITROGLYCERIN 0.4 MG SL TAB SL PRN (23:00)
[2021-12-31] MEDS ORDERED: ONDANSETRON 4MG INJ IV PRN (23:00)
[2021-12-31] MEDS ORDERED: ACETAMINOPHEN 325 MG TAB PO PRN ×2 (23:00)
[2021-12-31] MEDS ORDERED: ZOLPIDEM TARTRATE 5 MG TAB PO PRN (23:00)
[2021-12-31] MEDS ORDERED: HYDRALAZINE 20MG/ML VIAL IV PRN (23:00)
[2021-12-31] MEDS ORDERED: HYDRALAZINE 25MG TABLET PO PRN (23:00)
[2021-12-31] MEDS: PANTOPRAZOLE 40 MG/VIAL IVP SCH (23:40)
[2022-01-01] VITALS (7 sets, daily range): BP systolic 109–137; BP diastolic 34–71
[2022-01-01 03:57] LABS: BASOPHILS % (AUTO) 1.8 % (0.0-5.0); EOSINOPHILS % (AUTO) 5.1 % (0.0-8.0); HEMATOCRIT 28.5 % (36-48); LYMPHOCYTES % (AUTO) 13.4 % (21.0-51.0); MEAN CORPUSCULAR HEMOGLOBIN 31.1 pg (27.0-33.0); MEAN CORPUSCULAR HGB CONC 30.9 g/dL (32.0-36.0); MEAN CORPUSCULAR VOLUME 100.7 fL (79-99); MONOCYTES % (AUTO) 13.4 % (3.0-13.0); NEUTROPHILS % (AUTO) 65.8 % (40.0-77.0); PLATELET COUNT (AUTO) 221 K/uL (130-400); RED BLOOD CELL COUNT(AUTO) 2.83 MIL/uL (4.00-5.50); RED CELL DISTRIBUTION WIDTH 17.3 % (11.0-15.5); WHITE BLOOD COUNT (AUTO) 5.7 K/uL (4.8-10.8)
[2022-01-01 04:04] LABS: POTASSIUM 4.9 mmol/L (3.5-5.1)
[2022-01-01 08:55] LABS: MEAN CORPUSCULAR HEMOGLOBIN 31.5 pg (27.0-33.0); MEAN CORPUSCULAR HGB CONC 31.3 g/dL (32.0-36.0); MEAN CORPUSCULAR VOLUME 100.7 fL (79-99); RED BLOOD CELL COUNT(AUTO) 2.98 MIL/uL (4.00-5.50); RED CELL DISTRIBUTION WIDTH 17.7 % (11.0-15.5); WHITE BLOOD COUNT (AUTO) 5.6 K/uL (4.8-10.8)
[2022-01-01] MEDS: ATORVASTATIN 20 MG TABLET PO SCH (08:59)
[2022-01-01] MEDS: PANTOPRAZOLE 40 MG/VIAL IVP SCH ×2 (08:59→19:57)
[2022-01-01] MEDS ORDERED: PEG 3350/NA SULF,BICARB,CL/KCL 4000 ML SOLN PO SCH (09:30)
[2022-01-01 13:02] LABS: HEMATOCRIT 33.1 % (36-48); MEAN CORPUSCULAR HEMOGLOBIN 31.6 pg (27.0-33.0); MEAN CORPUSCULAR HGB CONC 30.8 g/dL (32.0-36.0); MEAN CORPUSCULAR VOLUME 102.5 fL (79-99); NUCLEATED RED BLOOD CELLS 0.3 % (0.0-0.19); RED BLOOD CELL COUNT(AUTO) 3.23 MIL/uL (4.00-5.50); RED CELL DISTRIBUTION WIDTH 17.9 % (11.0-15.5); WHITE BLOOD COUNT (AUTO) 6.8 K/uL (4.8-10.8)
[2022-01-01 17:46] LABS: HEMATOCRIT 32.9 % (36-48); MEAN CORPUSCULAR HEMOGLOBIN 30.9 pg (27.0-33.0); MEAN CORPUSCULAR VOLUME 99.7 fL (79-99); NUCLEATED RED BLOOD CELLS 0.3 % (0.0-0.19); RED BLOOD CELL COUNT(AUTO) 3.3 MIL/uL (4.00-5.50); RED CELL DISTRIBUTION WIDTH 17.9 % (11.0-15.5); WHITE BLOOD COUNT (AUTO) 6.7 K/uL (4.8-10.8)
[2022-01-01] MEDS ORDERED: HYDROCORTISONE 25 MG SUPPOSITORY PR PRN (19:30)
[2022-01-02] VITALS (33 sets, daily range): BP systolic 80–148; BP diastolic 36–83
[2022-01-02 05:53] LABS: HEMATOCRIT 32.5 % (36-48); MEAN CORPUSCULAR HEMOGLOBIN 31.5 pg (27.0-33.0); MEAN CORPUSCULAR HGB CONC 31.7 g/dL (32.0-36.0); MEAN CORPUSCULAR VOLUME 99.4 fL (79-99); NUCLEATED RED BLOOD CELLS 0.3 % (0.0-0.19); RED BLOOD CELL COUNT(AUTO) 3.27 MIL/uL (4.00-5.50); RED CELL DISTRIBUTION WIDTH 17.7 % (11.0-15.5); WHITE BLOOD COUNT (AUTO) 6.1 K/uL (4.8-10.8)
[2022-01-02] MEDS: PANTOPRAZOLE 40 MG/VIAL IVP SCH (09:52)
[2022-01-02] MEDS: ATORVASTATIN 20 MG TABLET PO SCH (09:52)
[2022-01-02] MEDS ORDERED: EPHEDRINE SULFATE 50 MG/ML AMPULE ONE (12:07)
[2022-01-02] MEDS ORDERED: PROPOFOL 10 MG/ML 20ML VIAL IV ONE (12:07)
[2022-01-02] MEDS ORDERED: LIDOCAINE PF 100MG/5ML (2%) SYRINGE 5ML ONE (12:08)
[2022-01-02] MEDS ORDERED: ATROPINE 1MG SYG IVP ONE (12:14)
[2022-01-02] MEDS ORDERED: HONEY 1 APPL/ML TUBE TP SCH (16:00)
[2022-01-02 21:49] LABS: HEPATITIS B SURFACE ANTIGEN Non-Reactive (Negative)
== END 2022-01-02 21:00 | disposition home or self-care (01) ==
LOC: EDH 18:13 → EDHIP 22:34 → 3CH 23:29
PROVIDERS: ADMIT Internal Medicine Pulmonary Disease; ATTEND Internal Medicine Pulmonary Disease
DX: K62.5 Hemorrhage of anus and rectum (principal); I12.0 Hypertensive chronic kidney disease with stage 5 chronic kidney disease or end stage renal disease; N18.6 End stage renal disease; I25.10 Atherosclerotic heart disease of native coronary artery without angina pectoris; E11.22 Type 2 diabetes mellitus with diabetic chronic kidney disease; E87.70 Fluid overload, unspecified; D72.829 Elevated white blood cell count, unspecified; E78.00 Pure hypercholesterolemia, unspecified; E78.5 Hyperlipidemia, unspecified; D68.9 Coagulation defect, unspecified; I45.4 Nonspecific intraventricular block; K59.09 Other constipation; Z79.01 Long term (current) use of anticoagulants; Z79.02 Long term (current) use of antithrombotics/antiplatelets; Z79.4 Long term (current) use of insulin; Z79.899 Other long term (current) drug therapy; Z87.891 Personal history of nicotine dependence; Z95.1 Presence of aortocoronary bypass graft; Z99.2 Dependence on renal dialysis; Z98.890 Other specified postprocedural states
CPT/HCPCS: 36415 ×3; 43235; 45378; 80048; 80053; 82270; 82948 ×7; 83605; 83880; 84132; 84484; 85014; 85018; 85025 ×2; 85027 ×4; 85610; 85730; 86704; 86706; 86850; 86900; 86901; 87040 ×2; 87340; 93005; 96374; 96376 ×2; 99284; A4215; A4222; A4606; A4620; A4657; C9113 ×4; G0378 ×40; J0461; J2001; J2704; J3490; J7030; 90935

== ENCOUNTER 2022-01-13 18:00 | Inpatient (IN) | payer OTHER, MEDICARE ==
[~2022-01-13] VITALS: Ht 154.9 cm; Wt 81.4 kg
[2022-01-13 18:38] LABS: BASOPHILS % (AUTO) 0.8 % (0.0-5.0); EOSINOPHILS % (AUTO) 2.9 % (0.0-8.0); HEMATOCRIT 41.7 % (36-48); LYMPHOCYTES % (AUTO) 12.2 % (21.0-51.0); MEAN CORPUSCULAR HEMOGLOBIN 30.8 pg (27.0-33.0); MEAN CORPUSCULAR HGB CONC 30.5 g/dL (32.0-36.0); MONOCYTES % (AUTO) 9.6 % (3.0-13.0); NUCLEATED RED BLOOD CELLS 0.3 % (0.0-0.19); PLATELET COUNT (AUTO) 269 K/uL (130-400); RED BLOOD CELL COUNT(AUTO) 4.13 MIL/uL (4.00-5.50); RED CELL DISTRIBUTION WIDTH 17.6 % (11.0-15.5); WHITE BLOOD COUNT (AUTO) 7.8 K/uL (4.8-10.8)
[2022-01-13 18:48] LABS: POTASSIUM 4.9 mmol/L (3.5-5.1)
[2022-01-13 18:52] LABS: ALBUMIN 1.9 g/dL (3.5-5.0); BILIRUBIN,TOTAL 0.5 mg/dL (0.2-1.0)
[2022-01-13] MEDS ORDERED: VANCOMYCIN 1G VIAL IVPB ONE (19:00)
[2022-01-13] MEDS ORDERED: ZOSYN 3.375GM +NS 50ML IV SCH (19:00)
[2022-01-13] MEDS ORDERED: 0.9%NACL 50ML 50 ML IV ONE (19:01)
[2022-01-13 19:02] LABS: APPEARANCE,URINE CLOUDY (CLEAR); BILIRUBIN,URINE NEGATIVE (NEGATIVE); COLOR,URINE YELLOW (YELLOW); GLUCOSE, URINE (UA) NEGATIVE (NEGATIVE); KETONES,URINE NEGATIVE (NEGATIVE); LEUKOCYTE ESTERASE ,URINE SMALL (NEGATIVE); NITRATE,URINE NEGATIVE (NEGATIVE); OCCULT BLOOD,URINE TRACE-INTACT (NEGATIVE); PH,URINE 8.5 (5.0-8.0); PROTEIN,URINE 100 mg/dL (NEGATIVE); UROBILINOGEN,URINE 0.2 mg/dL (0.2-1.0)
[2022-01-13] MEDS ORDERED: VANCOMYCIN 1G/250ML KIT 250 ML IV ONE (19:23)
[2022-01-13] MEDS ORDERED: 0.9% NACL 250ML 250 ML ONE (19:23)
[2022-01-13] MEDS ORDERED: HYDROMORPHONE 0.5 MG SYG (0.5MG/0.5ML) IV PRN (19:30)
[2022-01-13] MEDS ORDERED: ONDANSETRON 4MG INJ IV PRN (19:30)
[2022-01-13] MEDS ORDERED: GUAIFENESIN-DM 200/20 MG 10 ML PO PRN (19:30)
[2022-01-13] MEDS ORDERED: LACTULOSE 20 GM/30 ML UDCUP PO PRN (19:30)
[2022-01-13] MEDS ORDERED: VANCOMYCIN PROTOCOL PER PHARMACY IV PRN (19:30)
[2022-01-13 19:33] LABS: BACTERIA,URINE Moderate /HPF (None Seen); WBC,URINE 26-50 /HPF (0-1)
[2022-01-13 19:34] LABS: SQUAMOUS EPITHELIAL CELL,UR Few /HPF (0-2); TRANSITIONAL EPI CELLS,URINE Few /HPF (None Seen)
[2022-01-13] MEDS: ACETAMINOPHEN WITH CODEINE 1 TAB TAB PO PRN (20:37)
[2022-01-13] MEDS: HEPARIN 5,000 UNIT VIAL SQ SCH (22:32)
[2022-01-14] VITALS (22 sets, daily range): BP systolic 119–138; BP diastolic 49–84
[2022-01-14] MEDS: ACETAMINOPHEN WITH CODEINE 1 TAB TAB PO PRN ×2 (02:51→19:44)
[2022-01-14] MEDS ORDERED: HYDRALAZINE 20MG/ML VIAL IV PRN (04:00)
[2022-01-14 05:43] LABS: HEMATOCRIT 34.1 % (36-48); MEAN CORPUSCULAR HEMOGLOBIN 30.9 pg (27.0-33.0); MEAN CORPUSCULAR HGB CONC 30.5 g/dL (32.0-36.0); MEAN CORPUSCULAR VOLUME 101.2 fL (79-99); RED BLOOD CELL COUNT(AUTO) 3.37 MIL/uL (4.00-5.50); RED CELL DISTRIBUTION WIDTH 17.3 % (11.0-15.5); WHITE BLOOD COUNT (AUTO) 7.2 K/uL (4.8-10.8)
[2022-01-14 05:51] LABS: CREATININE 6.5 mg/dL (0.5-1.5); POTASSIUM 4.9 mmol/L (3.5-5.1)
[2022-01-14] MEDS ORDERED: IOHEXOL-350 50ML VIAL IV ONE (06:53)
[2022-01-14] MEDS ORDERED: IOHEXOL 350 MG/ML 100ML INFUS..BTL IV ONE (06:53)
[2022-01-14 08:30] LABS: HEMOGLOBIN A1C 5.8 % (4.0-6.0)
[2022-01-14 08:32] LABS: CHOLESTEROL 118 mg/dL (<200); HDL CHOLESTEROL 45 mg/dL (35-85); LDL DIRECT 54 mg/dL (0-99); TRIGLYCERIDES 100 mg/dL (30-200)
[2022-01-14] MEDS: PANTOPRAZOLE 40 MG TAB DR PO SCH (09:25)
[2022-01-14] MEDS: CLOPIDOGREL 75MG TAB PO SCH (09:25)
[2022-01-14] MEDS: ZOSYN 3.375GM+NS 50ML 50 ML IV SCH ×2 (09:26→19:43)
[2022-01-14] MEDS: ATORVASTATIN 40 MG TABLET PO SCH (19:43)
[2022-01-14] MEDS: HEPARIN 5,000 UNIT VIAL SQ SCH (19:50)
[2022-01-15 03:48] VITALS: BP 117/63
[2022-01-15] MEDS: HYDROXYZINE 25 MG TABLET PO PRN (04:47)
[2022-01-15] MEDS: ALPRAZOLAM 0.25 MG TABLET PO PRN (04:47)
[2022-01-15 05:31] LABS: ALBUMIN 1.5 g/dL (3.5-5.0); BILIRUBIN,TOTAL 0.5 mg/dL (0.2-1.0); CREATININE 5.2 mg/dL (0.5-1.5); PHOSPHORUS 5.8 mg/dL (2.5-4.9); POTASSIUM 4.6 mmol/L (3.5-5.1); TOTAL PROTEIN, SERUM 5.8 g/dL (6.0-8.3)
[2022-01-15 05:59] LABS: BASOPHILS % (AUTO) 1.1 % (0.0-5.0); EOSINOPHILS % (AUTO) 3.6 % (0.0-8.0); HEMATOCRIT 35.3 % (36-48); LYMPHOCYTES % (AUTO) 9.5 % (21.0-51.0); MEAN CORPUSCULAR HGB CONC 30.9 g/dL (32.0-36.0); MEAN CORPUSCULAR VOLUME 100.3 fL (79-99); MONOCYTES % (AUTO) 10.1 % (3.0-13.0); NEUTROPHILS % (AUTO) 75.3 % (40.0-77.0); PLATELET COUNT (AUTO) 218 K/uL (130-400); RED BLOOD CELL COUNT(AUTO) 3.52 MIL/uL (4.00-5.50); RED CELL DISTRIBUTION WIDTH 17.7 % (11.0-15.5)
[2022-01-15] MEDS: ACETAMINOPHEN WITH CODEINE 1 TAB TAB PO PRN (10:02)
[2022-01-15] MEDS: CLOPIDOGREL 75MG TAB PO SCH (10:03)
[2022-01-15] MEDS: SEVELAMER HCL 800 MG TABLET PO SCH ×2 (10:04→20:26)
[2022-01-15] MEDS: ZOSYN 3.375GM+NS 50ML 50 ML IV SCH ×2 (10:04→20:26)
[2022-01-15] MEDS: PANTOPRAZOLE 40 MG TAB DR PO SCH (10:04)
[2022-01-15] MEDS: HEPARIN 5,000 UNIT VIAL SQ SCH ×2 (10:05→20:28)
[2022-01-15 10:18] VITALS: BP 144/54
[2022-01-15 12:19] VITALS: BP 116/50
[2022-01-15 16:06] VITALS: BP 152/54
[2022-01-15 20:09] VITALS: BP 123/56
[2022-01-15] MEDS: ATORVASTATIN 40 MG TABLET PO SCH (20:26)
[2022-01-15 23:25] VITALS: BP 132/52
[2022-01-16 03:40] VITALS: BP 131/52
[2022-01-16 05:34] LABS: HEMATOCRIT 36.4 % (36-48); MEAN CORPUSCULAR HEMOGLOBIN 30.7 pg (27.0-33.0); MEAN CORPUSCULAR HGB CONC 30.5 g/dL (32.0-36.0); MEAN CORPUSCULAR VOLUME 100.6 fL (79-99); PLATELET COUNT (AUTO) 217 K/uL (130-400); RED BLOOD CELL COUNT(AUTO) 3.62 MIL/uL (4.00-5.50); RED CELL DISTRIBUTION WIDTH 17.4 % (11.0-15.5); WHITE BLOOD COUNT (AUTO) 7.2 K/uL (4.8-10.8)
[2022-01-16 05:49] LABS: CREATININE 6.2 mg/dL (0.5-1.5); PHOSPHORUS 6.7 mg/dL (2.5-4.9)
[2022-01-16 06:29] LABS: BASOPHILS % (MANUAL) 1 % (0-2); EOSINOPHILS % (MANUAL) 2 % (1-6); LYMPHOCYTES % (MANUAL) 16 % (22-44); MAN.DIFF COMMENT-IMPRESSION MANUAL DIFFERENTIAL; MONOCYTES % (MANUAL) 7 % (2-9); PLATELET MORPHOLOGY COMMENT ADEQUATE; REACTIVE LYMPHOCYTES 1 % (0-0); SEGMENTED NEUTROPHILS % 73 % (40-70)
[2022-01-16 07:30] VITALS: BP 119/53
[2022-01-16] MEDS: SEVELAMER HCL 800 MG TABLET PO SCH ×2 (08:00→16:11)
[2022-01-16] MEDS: PANTOPRAZOLE 40 MG TAB DR PO SCH ×2 (09:00→16:11)
[2022-01-16] MEDS: CLOPIDOGREL 75MG TAB PO SCH ×2 (09:00→16:11)
[2022-01-16] MEDS: HEPARIN 5,000 UNIT VIAL SQ SCH ×3 (09:00→22:04)
[2022-01-16] MEDS: ZOSYN 3.375GM+NS 50ML 50 ML IV SCH ×2 (09:50→21:48)
[2022-01-16 11:30] VITALS: BP 125/51
[2022-01-16 16:00] VITALS: BP 123/51
[2022-01-16 20:00] VITALS: BP 106/59
[2022-01-16] MEDS: ATORVASTATIN 40 MG TABLET PO SCH (21:48)
[2022-01-17] VITALS (17 sets, daily range): BP systolic 110–136; BP diastolic 45–61
[2022-01-17 05:02] LABS: BASOPHILS % (AUTO) 0.9 % (0.0-5.0); EOSINOPHILS % (AUTO) 3.7 % (0.0-8.0); HEMATOCRIT 34.1 % (36-48); LYMPHOCYTES % (AUTO) 14.6 % (21.0-51.0); MEAN CORPUSCULAR HEMOGLOBIN 32.1 pg (27.0-33.0); MEAN CORPUSCULAR HGB CONC 31.1 g/dL (32.0-36.0); MEAN CORPUSCULAR VOLUME 103.3 fL (79-99); MONOCYTES % (AUTO) 11.4 % (3.0-13.0); PLATELET COUNT (AUTO) 203 K/uL (130-400); RED CELL DISTRIBUTION WIDTH 17.2 % (11.0-15.5); WHITE BLOOD COUNT (AUTO) 6.8 K/uL (4.8-10.8)
[2022-01-17 05:15] LABS: ALBUMIN 1.4 g/dL (3.5-5.0); BILIRUBIN,TOTAL 0.5 mg/dL (0.2-1.0); CREATININE 7.2 mg/dL (0.5-1.5); POTASSIUM 5.2 mmol/L (3.5-5.1); TOTAL PROTEIN, SERUM 5.4 g/dL (6.0-8.3)
[2022-01-17] MEDS: SEVELAMER HCL 800 MG TABLET PO SCH ×2 (08:00→16:27)
[2022-01-17 08:15] LABS: INR 1.17 (0.85-1.15); PARTIAL THROMBOPLASTIN TIME 24.9 SEC (26.3-35.5); PROTHROMBIN TIME 12.1 SEC (9.6-11.6)
[2022-01-17] MEDS: HEPARIN 5,000 UNIT VIAL SQ SCH ×3 (08:58→21:08)
[2022-01-17] MEDS: PANTOPRAZOLE 40 MG TAB DR PO SCH (09:04)
[2022-01-17] MEDS: CLOPIDOGREL 75MG TAB PO SCH (09:05)
[2022-01-17] MEDS: ZOSYN 3.375GM+NS 50ML 50 ML IV SCH ×2 (09:05→20:36)
[2022-01-17] MEDS: CARVEDILOL 3.125 MG TABLET PO SCH ×2 (09:08→20:36)
[2022-01-17] MEDS: ACETAMINOPHEN WITH CODEINE 1 TAB TAB PO PRN (11:12)
[2022-01-17] MEDS ORDERED: SODIUM BICARB 50MEQ 50ML VIAL 50 ML ONE (12:31)
[2022-01-17] MEDS ORDERED: NITROGLYCERIN 50MG VIAL ONE (12:32)
[2022-01-17] MEDS ORDERED: IOHEXOL-350 75 ML VIAL IV ONE (12:32)
[2022-01-17] MEDS ORDERED: HEPARIN 10,000 UNIT/10ML (1,000 UNIT/ML) VIAL ONE (12:32)
[2022-01-17] MEDS ORDERED: FENTANYL CITRATE PF 50 MCG/1 ML 2ML VIAL ONE (12:32)
[2022-01-17] MEDS ORDERED: MIDAZOLAM HCL 1 MG/ML 2ML VIAL ONE (12:32)
[2022-01-17] MEDS ORDERED: IODIXANOL 320 MG/ML 100 ML VIAL ONE (12:36)
[2022-01-17] MEDS ORDERED: LIDOCAINE HCL 1% MDV 50ML VIAL ONE (13:10)
[2022-01-17] MEDS: ATORVASTATIN 40 MG TABLET PO SCH (20:36)
[2022-01-17] MEDS: LISINOPRIL 2.5 MG TABLET PO SCH (20:37)
[2022-01-17 20:48] LABS: HEPATITIS B SURFACE ANTIGEN Non-Reactive (Negative)
[2022-01-18] VITALS (22 sets, daily range): BP systolic 102–125; BP diastolic 44–56
[2022-01-18] MEDS: ZOSYN 3.375GM+NS 50ML 50 ML IV SCH ×2 (09:06→20:42)
[2022-01-18] MEDS: PANTOPRAZOLE 40 MG TAB DR PO SCH (09:06)
[2022-01-18] MEDS: SEVELAMER HCL 800 MG TABLET PO SCH ×2 (09:06→17:26)
[2022-01-18] MEDS: CLOPIDOGREL 75MG TAB PO SCH (09:07)
[2022-01-18] MEDS: CARVEDILOL 3.125 MG TABLET PO SCH ×2 (09:07→20:43)
[2022-01-18] MEDS: HEPARIN 5,000 UNIT VIAL SQ SCH ×3 (09:10→20:51)
[2022-01-18] MEDS: HYDROXYZINE 25 MG TABLET PO PRN ×2 (09:15→20:44)
[2022-01-18] MEDS: ATORVASTATIN 40 MG TABLET PO SCH (20:43)
[2022-01-18] MEDS: LISINOPRIL 2.5 MG TABLET PO SCH (20:43)
[2022-01-19] VITALS (7 sets, daily range): BP systolic 98–121; BP diastolic 41–51
[2022-01-19] MEDS: ACETAMINOPHEN WITH CODEINE 1 TAB TAB PO PRN (03:31)
[2022-01-19 05:01] LABS: BASOPHILS % (AUTO) 0.9 % (0.0-5.0); EOSINOPHILS % (AUTO) 2.6 % (0.0-8.0); HEMATOCRIT 32.1 % (36-48); LYMPHOCYTES % (AUTO) 12.6 % (21.0-51.0); MEAN CORPUSCULAR HEMOGLOBIN 31.3 pg (27.0-33.0); MEAN CORPUSCULAR HGB CONC 31.2 g/dL (32.0-36.0); MEAN CORPUSCULAR VOLUME 100.6 fL (79-99); MONOCYTES % (AUTO) 11.5 % (3.0-13.0); NEUTROPHILS % (AUTO) 71.8 % (40.0-77.0); PLATELET COUNT (AUTO) 181 K/uL (130-400); RED BLOOD CELL COUNT(AUTO) 3.19 MIL/uL (4.00-5.50); RED CELL DISTRIBUTION WIDTH 16.9 % (11.0-15.5); WHITE BLOOD COUNT (AUTO) 6.4 K/uL (4.8-10.8)
[2022-01-19 05:37] LABS: ALBUMIN 1.3 g/dL (3.5-5.0); BILIRUBIN,TOTAL 0.5 mg/dL (0.2-1.0); CREATININE 4.8 mg/dL (0.5-1.5); MAGNESIUM 2.1 mg/dL (1.80-2.40); PHOSPHORUS 5.4 mg/dL (2.5-4.9); POTASSIUM 4.1 mmol/L (3.5-5.1); TOTAL PROTEIN, SERUM 5.5 g/dL (6.0-8.3)
[2022-01-19] MEDS: SEVELAMER HCL 800 MG TABLET PO SCH ×2 (08:09→16:32)
[2022-01-19] MEDS: ZOSYN 3.375GM+NS 50ML 50 ML IV SCH ×2 (08:09→21:20)
[2022-01-19] MEDS: CARVEDILOL 3.125 MG TABLET PO SCH ×2 (08:10→21:22)
[2022-01-19] MEDS: CLOPIDOGREL 75MG TAB PO SCH (08:11)
[2022-01-19] MEDS: HYDROXYZINE 25 MG TABLET PO PRN (08:11)
[2022-01-19] MEDS: PANTOPRAZOLE 40 MG TAB DR PO SCH (08:11)
[2022-01-19] MEDS: HEPARIN 5,000 UNIT VIAL SQ SCH ×3 (08:13→21:29)
[2022-01-19] MEDS: ATORVASTATIN 40 MG TABLET PO SCH (21:21)
[2022-01-19] MEDS: LISINOPRIL 2.5 MG TABLET PO SCH (21:21)
[2022-01-20] VITALS (26 sets, daily range): BP systolic 95–143; BP diastolic 35–57
[2022-01-20 05:02] LABS: BASOPHILS % (AUTO) 0.8 % (0.0-5.0); EOSINOPHILS % (AUTO) 3.5 % (0.0-8.0); HEMATOCRIT 32.2 % (36-48); LYMPHOCYTES % (AUTO) 14.4 % (21.0-51.0); MEAN CORPUSCULAR HEMOGLOBIN 31.9 pg (27.0-33.0); MEAN CORPUSCULAR HGB CONC 31.7 g/dL (32.0-36.0); MEAN CORPUSCULAR VOLUME 100.6 fL (79-99); MONOCYTES % (AUTO) 11.3 % (3.0-13.0); NEUTROPHILS % (AUTO) 69.5 % (40.0-77.0); PLATELET COUNT (AUTO) 193 K/uL (130-400); RED CELL DISTRIBUTION WIDTH 16.6 % (11.0-15.5); WHITE BLOOD COUNT (AUTO) 5.9 K/uL (4.8-10.8)
[2022-01-20 05:28] LABS: INR 1.12 (0.85-1.15); PROTHROMBIN TIME 12.1 SEC (9.6-11.6)
[2022-01-20 05:29] LABS: PARTIAL THROMBOPLASTIN TIME 29.3 SEC (26.3-35.5)
[2022-01-20 05:35] LABS: ALBUMIN 1.3 g/dL (3.5-5.0); BILIRUBIN,TOTAL 0.7 mg/dL (0.2-1.0); CREATININE 5.8 mg/dL (0.5-1.5); MAGNESIUM 2.3 mg/dL (1.80-2.40); PHOSPHORUS 6.3 mg/dL (2.5-4.9); POTASSIUM 4.6 mmol/L (3.5-5.1); TOTAL PROTEIN, SERUM 5.6 g/dL (6.0-8.3)
[2022-01-20] MEDS ORDERED: SODIUM BICARB 50MEQ 50ML VIAL 50 ML ONE (07:05)
[2022-01-20] MEDS ORDERED: HEPARIN 10,000 UNIT/10ML (1,000 UNIT/ML) VIAL ONE (07:06)
[2022-01-20] MEDS ORDERED: NITROGLYCERIN 50MG VIAL ONE (07:06)
[2022-01-20] MEDS ORDERED: MEPERIDINE-PF 25 MG/ML SYG ONE ×2 (07:06→08:26)
[2022-01-20] MEDS ORDERED: IODIXANOL 320 MG/ML 100 ML VIAL ONE (07:06)
[2022-01-20] MEDS ORDERED: MIDAZOLAM HCL 1 MG/ML 2ML VIAL ONE ×2 (07:07→08:26)
[2022-01-20] MEDS ORDERED: LIDOCAINE HCL 400MG/20ML VIAL ONE (07:07)
[2022-01-20] MEDS: SEVELAMER HCL 800 MG TABLET PO SCH ×2 (08:00→18:44)
[2022-01-20] MEDS: CARVEDILOL 3.125 MG TABLET PO SCH ×2 (09:00→21:34)
[2022-01-20] MEDS: PANTOPRAZOLE 40 MG TAB DR PO SCH (09:00)
[2022-01-20] MEDS: HEPARIN 5,000 UNIT VIAL SQ SCH (09:00)
[2022-01-20] MEDS: CLOPIDOGREL 75MG TAB PO SCH (09:00)
[2022-01-20] MEDS: 0.9%NACL 10ML VIAL IVP SCH ×2 (09:30→17:30)
[2022-01-20] MEDS ORDERED: PHARMACY COMMUNICATION MISC SCH (09:30)
[2022-01-20] MEDS: ZOSYN 3.375GM+NS 50ML 50 ML IV SCH ×2 (10:00→23:14)
[2022-01-20] MEDS: VANCOMYCIN 1G/250ML KIT 250 ML IV SCH ×2 (18:00→18:44)
[2022-01-20] MEDS ORDERED: VANCOMYCIN 1.25 GM/250 ML BAG 250 ML IV ONE (19:00)
[2022-01-20] MEDS: ATORVASTATIN 40 MG TABLET PO SCH (21:34)
[2022-01-20] MEDS: LISINOPRIL 2.5 MG TABLET PO SCH (21:34)
[2022-01-21 04:06] VITALS: BP 106/46
[2022-01-21 04:23] LABS: EOSINOPHILS % (AUTO) 2.3 % (0.0-8.0); HEMATOCRIT 35.2 % (36-48); LYMPHOCYTES % (AUTO) 13.3 % (21.0-51.0); MEAN CORPUSCULAR HEMOGLOBIN 31.8 pg (27.0-33.0); MEAN CORPUSCULAR HGB CONC 31.8 g/dL (32.0-36.0); MONOCYTES % (AUTO) 7.8 % (3.0-13.0); NEUTROPHILS % (AUTO) 75.3 % (40.0-77.0); PLATELET COUNT (AUTO) 205 K/uL (130-400); RED BLOOD CELL COUNT(AUTO) 3.52 MIL/uL (4.00-5.50); RED CELL DISTRIBUTION WIDTH 16.3 % (11.0-15.5); WHITE BLOOD COUNT (AUTO) 6.8 K/uL (4.8-10.8)
[2022-01-21 04:46] LABS: ALBUMIN 1.4 g/dL (3.5-5.0); BILIRUBIN,TOTAL 0.6 mg/dL (0.2-1.0); CREATININE 4.2 mg/dL (0.5-1.5); MAGNESIUM 2.1 mg/dL (1.80-2.40); PHOSPHORUS 4.9 mg/dL (2.5-4.9); POTASSIUM 4.2 mmol/L (3.5-5.1); TOTAL PROTEIN, SERUM 6.1 g/dL (6.0-8.3)
[2022-01-21 08:00] VITALS: BP 112/38
[2022-01-21] MEDS: CARVEDILOL 3.125 MG TABLET PO SCH ×2 (09:00→21:45)
[2022-01-21] MEDS: SEVELAMER HCL 800 MG TABLET PO SCH ×2 (10:38→17:32)
[2022-01-21] MEDS: PANTOPRAZOLE 40 MG TAB DR PO SCH (10:38)
[2022-01-21] MEDS: ZOSYN 3.375GM+NS 50ML 50 ML IV SCH ×2 (10:38→21:43)
[2022-01-21 12:00] VITALS: BP 125/56
[2022-01-21] MEDS: HEPARIN 5,000 UNIT VIAL SQ SCH ×2 (14:00→21:00)
[2022-01-21 16:00] VITALS: BP 125/57
[2022-01-21] MEDS: CLOPIDOGREL 75MG TAB PO SCH (17:32)
[2022-01-21 19:00] VITALS: BP 107/43
[2022-01-21] MEDS: ATORVASTATIN 40 MG TABLET PO SCH (21:44)
[2022-01-21] MEDS: LISINOPRIL 2.5 MG TABLET PO SCH (21:44)
[2022-01-22] VITALS (7 sets, daily range): BP systolic 92–119; BP diastolic 42–72
[2022-01-22] MEDS ORDERED: 0.9% NACL 250ML 250 ML ONE (05:14)
[2022-01-22] MEDS: HEPARIN 5,000 UNIT VIAL SQ SCH ×3 (09:00→21:00)
[2022-01-22] MEDS: SEVELAMER HCL 800 MG TABLET PO SCH ×2 (09:42→19:40)
[2022-01-22] MEDS: CLOPIDOGREL 75MG TAB PO SCH (09:42)
[2022-01-22] MEDS: PANTOPRAZOLE 40 MG TAB DR PO SCH (09:42)
[2022-01-22] MEDS: CARVEDILOL 3.125 MG TABLET PO SCH ×2 (09:44→20:59)
[2022-01-22] MEDS: ZOSYN 3.375GM+NS 50ML 50 ML IV SCH ×2 (09:44→20:58)
[2022-01-22] MEDS ORDERED: MIDODRINE HCL 5 MG TABLET PO SCH (18:00)
[2022-01-22] MEDS: ACETAMINOPHEN WITH CODEINE 1 TAB TAB PO PRN (19:44)
[2022-01-22] MEDS: LISINOPRIL 2.5 MG TABLET PO SCH (20:51)
[2022-01-22] MEDS: ATORVASTATIN 40 MG TABLET PO SCH (20:58)
[2022-01-23] VITALS (22 sets, daily range): BP systolic 111–138; BP diastolic 35–58
[2022-01-23] MEDS ORDERED: VANCOMYCIN 750MG VIAL IVPB SCH (09:00)
[2022-01-23] MEDS: CARVEDILOL 3.125 MG TABLET PO SCH ×2 (09:00→20:34)
[2022-01-23] MEDS: HEPARIN 5,000 UNIT VIAL SQ SCH ×3 (09:00→20:31)
[2022-01-23] MEDS: PANTOPRAZOLE 40 MG TAB DR PO SCH (09:15)
[2022-01-23] MEDS: CLOPIDOGREL 75MG TAB PO SCH (09:15)
[2022-01-23] MEDS: SEVELAMER HCL 800 MG TABLET PO SCH ×2 (09:15→16:47)
[2022-01-23 09:24] LABS: BASOPHILS % (AUTO) 1.1 % (0.0-5.0); EOSINOPHILS % (AUTO) 3.6 % (0.0-8.0); HEMATOCRIT 35.7 % (36-48); LYMPHOCYTES % (AUTO) 13.2 % (21.0-51.0); MEAN CORPUSCULAR HEMOGLOBIN 31.5 pg (27.0-33.0); MEAN CORPUSCULAR HGB CONC 31.9 g/dL (32.0-36.0); MEAN CORPUSCULAR VOLUME 98.6 fL (79-99); NEUTROPHILS % (AUTO) 71.5 % (40.0-77.0); PLATELET COUNT (AUTO) 214 K/uL (130-400); RED BLOOD CELL COUNT(AUTO) 3.62 MIL/uL (4.00-5.50); RED CELL DISTRIBUTION WIDTH 15.6 % (11.0-15.5); WHITE BLOOD COUNT (AUTO) 6.6 K/uL (4.8-10.8)
[2022-01-23 09:38] LABS: ALBUMIN 1.4 g/dL (3.5-5.0); BILIRUBIN,TOTAL 0.5 mg/dL (0.2-1.0); CREATININE 6.4 mg/dL (0.5-1.5); MAGNESIUM 2.3 mg/dL (1.80-2.40); PHOSPHORUS 6.4 mg/dL (2.5-4.9); POTASSIUM 4.6 mmol/L (3.5-5.1); TOTAL PROTEIN, SERUM 6.1 g/dL (6.0-8.3)
[2022-01-23] MEDS: ZOSYN 3.375GM+NS 50ML 50 ML IV SCH ×2 (10:30→21:41)
[2022-01-23] MEDS: VANCOMYCIN 750MG VIAL IVPB SCH (15:23)
[2022-01-23] MEDS: ACETAMINOPHEN WITH CODEINE 1 TAB TAB PO PRN (20:33)
[2022-01-23] MEDS: ATORVASTATIN 40 MG TABLET PO SCH (20:34)
[2022-01-24 05:10] LABS: HEMATOCRIT 33.6 % (36-48); LYMPHOCYTES % (AUTO) 13.8 % (21.0-51.0); MEAN CORPUSCULAR HEMOGLOBIN 30.4 pg (27.0-33.0); MEAN CORPUSCULAR VOLUME 98.2 fL (79-99); MONOCYTES % (AUTO) 11.5 % (3.0-13.0); NEUTROPHILS % (AUTO) 70.1 % (40.0-77.0); PLATELET COUNT (AUTO) 206 K/uL (130-400); RED BLOOD CELL COUNT(AUTO) 3.42 MIL/uL (4.00-5.50); RED CELL DISTRIBUTION WIDTH 15.4 % (11.0-15.5); WHITE BLOOD COUNT (AUTO) 6.7 K/uL (4.8-10.8)
[2022-01-24 05:19] LABS: INR 1.15 (0.85-1.15); PROTHROMBIN TIME 12.4 SEC (9.6-11.6)
[2022-01-24 05:21] LABS: PARTIAL THROMBOPLASTIN TIME 27.3 SEC (26.3-35.5)
[2022-01-24 06:03] LABS: ALBUMIN 1.2 g/dL (3.5-5.0); CREATININE 4.7 mg/dL (0.5-1.5); PHOSPHORUS 4.8 mg/dL (2.5-4.9); POTASSIUM 4.2 mmol/L (3.5-5.1)
[2022-01-24 06:04] LABS: BILIRUBIN,TOTAL 0.4 mg/dL (0.2-1.0); TOTAL PROTEIN, SERUM 5.7 g/dL (6.0-8.3)
[2022-01-24 06:15] VITALS: BP 116/63
[2022-01-24 06:25] LABS: MAGNESIUM 1.9 mg/dL (1.80-2.40)
[2022-01-24 07:25] VITALS: BP 115/50
[2022-01-24] MEDS: PANTOPRAZOLE 40 MG TAB DR PO SCH (08:06)
[2022-01-24] MEDS: SEVELAMER HCL 800 MG TABLET PO SCH ×2 (08:06→17:29)
[2022-01-24] MEDS: CLOPIDOGREL 75MG TAB PO SCH (08:06)
[2022-01-24] MEDS: CARVEDILOL 3.125 MG TABLET PO SCH ×2 (08:07→21:00)
[2022-01-24] MEDS: HEPARIN 5,000 UNIT VIAL SQ SCH ×3 (09:00→21:03)
[2022-01-24] MEDS: ZOSYN 3.375GM+NS 50ML 50 ML IV SCH ×2 (10:52→22:04)
[2022-01-24 11:20] VITALS: BP 102/43
[2022-01-24] MEDS: ACETAMINOPHEN WITH CODEINE 1 TAB TAB PO PRN ×2 (13:06→21:07)
[2022-01-24 15:20] VITALS: BP 140/50
[2022-01-24] MEDS ORDERED: HEPARIN 5,000 UNIT VIAL ONE (17:25)
[2022-01-24 19:55] VITALS: BP 103/44
[2022-01-24] MEDS: ATORVASTATIN 40 MG TABLET PO SCH (21:05)
[2022-01-24 23:36] VITALS: BP 107/49
[2022-01-25] VITALS (34 sets, daily range): BP systolic 109–161; BP diastolic 32–88
[2022-01-25 06:35] LABS: EOSINOPHILS % (AUTO) 3.5 % (0.0-8.0); HEMATOCRIT 32.6 % (36-48); LYMPHOCYTES % (AUTO) 13.8 % (21.0-51.0); MEAN CORPUSCULAR HEMOGLOBIN 31.5 pg (27.0-33.0); MEAN CORPUSCULAR HGB CONC 32.5 g/dL (32.0-36.0); MEAN CORPUSCULAR VOLUME 96.7 fL (79-99); MONOCYTES % (AUTO) 11.6 % (3.0-13.0); NEUTROPHILS % (AUTO) 69.6 % (40.0-77.0); PLATELET COUNT (AUTO) 212 K/uL (130-400); RED BLOOD CELL COUNT(AUTO) 3.37 MIL/uL (4.00-5.50); RED CELL DISTRIBUTION WIDTH 15.7 % (11.0-15.5)
[2022-01-25 06:37] LABS: ALBUMIN 1.3 g/dL (3.5-5.0); BILIRUBIN,TOTAL 0.5 mg/dL (0.2-1.0); CREATININE 5.9 mg/dL (0.5-1.5); POTASSIUM 4.7 mmol/L (3.5-5.1); TOTAL PROTEIN, SERUM 5.6 g/dL (6.0-8.3)
[2022-01-25 06:55] LABS: INR 1.14 (0.85-1.15); PROTHROMBIN TIME 12.3 SEC (9.6-11.6)
[2022-01-25 06:56] LABS: PARTIAL THROMBOPLASTIN TIME 28.2 SEC (26.3-35.5)
[2022-01-25] MEDS: SEVELAMER HCL 800 MG TABLET PO SCH ×2 (08:00→17:00)
[2022-01-25] MEDS: ZOSYN 3.375GM+NS 50ML 50 ML IV SCH ×2 (09:00→23:11)
[2022-01-25] MEDS: CARVEDILOL 3.125 MG TABLET PO SCH ×2 (09:00→23:11)
[2022-01-25] MEDS: CLOPIDOGREL 75MG TAB PO SCH (09:00)
[2022-01-25] MEDS: PANTOPRAZOLE 40 MG TAB DR PO SCH (09:00)
[2022-01-25] MEDS: HEPARIN 5,000 UNIT VIAL SQ SCH ×2 (09:00→14:00)
[2022-01-25] MEDS ORDERED: LIDOCAINE HCL 1% 20 ML VIAL ONE (12:24)
[2022-01-25] MEDS ORDERED: IODIXANOL 320 MG/ML 100 ML VIAL ONE (12:24)
[2022-01-25] MEDS ORDERED: HEPARIN 10,000 UNIT/10ML (1,000 UNIT/ML) VIAL ONE (12:24)
[2022-01-25] MEDS ORDERED: NITROGLYCERIN 50MG VIAL ONE (12:24)
[2022-01-25] MEDS ORDERED: MEPERIDINE-PF 25 MG/ML SYG ONE ×2 (12:24→13:06)
[2022-01-25] MEDS ORDERED: NICARDIPINE 25MG INJ IV ONE (12:24)
[2022-01-25] MEDS ORDERED: SODIUM BICARB 50MEQ 50ML VIAL 50 ML ONE (12:24)
[2022-01-25] MEDS ORDERED: MIDAZOLAM HCL 1 MG/ML 2ML VIAL ONE ×2 (12:25→13:06)
[2022-01-25] MEDS ORDERED: ASPIRIN 325MG EC TAB PO ONE (14:46)
[2022-01-25] MEDS ORDERED: ONDANSETRON 4MG INJ IVP PRN (15:00)
[2022-01-25] MEDS ORDERED: ACETAMINOPHEN WITH CODEINE 1 TAB TAB PO PRN (15:00)
[2022-01-25] MEDS ORDERED: TEMAZEPAM 30 MG CAP PO PRN (15:00)
[2022-01-25] MEDS: VANCOMYCIN 750MG VIAL IVPB SCH (17:26)
[2022-01-25] MEDS ORDERED: 0.9%NACL 1000ML 2,000 ML IV ONE (17:26)
[2022-01-25 19:26] LABS: INR 1.14 (0.85-1.15); PROTHROMBIN TIME 12.3 SEC (9.6-11.6)
[2022-01-25 19:28] LABS: PARTIAL THROMBOPLASTIN TIME 33.6 SEC (26.3-35.5)
[2022-01-25] MEDS ORDERED: 0.9%NACL 50ML 50 ML IV ONE (22:54)
[2022-01-25] MEDS: CILOSTAZOL 100 MG TAB PO SCH (23:11)
[2022-01-25] MEDS: ATORVASTATIN 40 MG TABLET PO SCH (23:12)
[2022-01-26] VITALS (7 sets, daily range): BP systolic 90–131; BP diastolic 33–56
[2022-01-26 05:02] LABS: BASOPHILS % (AUTO) 0.9 % (0.0-5.0); EOSINOPHILS % (AUTO) 1.5 % (0.0-8.0); LYMPHOCYTES % (AUTO) 10.8 % (21.0-51.0); MEAN CORPUSCULAR HEMOGLOBIN 30.2 pg (27.0-33.0); MEAN CORPUSCULAR HGB CONC 30.9 g/dL (32.0-36.0); MEAN CORPUSCULAR VOLUME 97.8 fL (79-99); MONOCYTES % (AUTO) 12.8 % (3.0-13.0); NEUTROPHILS % (AUTO) 73.2 % (40.0-77.0); PLATELET COUNT (AUTO) 194 K/uL (130-400); RED BLOOD CELL COUNT(AUTO) 3.58 MIL/uL (4.00-5.50); RED CELL DISTRIBUTION WIDTH 15.4 % (11.0-15.5); WHITE BLOOD COUNT (AUTO) 7.9 K/uL (4.8-10.8)
[2022-01-26 05:17] LABS: ALBUMIN 1.2 g/dL (3.5-5.0); BILIRUBIN,TOTAL 0.4 mg/dL (0.2-1.0); CREATININE 4.4 mg/dL (0.5-1.5); POTASSIUM 4.3 mmol/L (3.5-5.1); TOTAL PROTEIN, SERUM 5.6 g/dL (6.0-8.3)
[2022-01-26] MEDS ORDERED: PANTOPRAZOLE 40 MG TAB DR PO SCH (09:00)
[2022-01-26] MEDS: ZOSYN 3.375GM+NS 50ML 50 ML IV SCH ×2 (09:00→21:20)
[2022-01-26] MEDS: ASPIRIN 81MG CHEW TAB PO SCH (09:01)
[2022-01-26] MEDS: PANTOPRAZOLE 40 MG TAB DR PO SCH (09:01)
[2022-01-26] MEDS: CLOPIDOGREL 75MG TAB PO SCH (09:01)
[2022-01-26] MEDS: CILOSTAZOL 100 MG TAB PO SCH ×2 (09:01→21:19)
[2022-01-26] MEDS: SEVELAMER HCL 800 MG TABLET PO SCH ×2 (09:01→17:15)
[2022-01-26] MEDS: CARVEDILOL 3.125 MG TABLET PO SCH (09:01)
[2022-01-26] MEDS ORDERED: 0.9%NACL 50ML 50 ML IV ONE (20:32)
[2022-01-26] MEDS: ACETAMINOPHEN 325 MG TAB PO PRN (21:19)
[2022-01-26] MEDS: ATORVASTATIN 40 MG TABLET PO SCH (21:20)
[2022-01-27] VITALS (22 sets, daily range): BP systolic 84–125; BP diastolic 42–77
[2022-01-27 04:17] LABS: BASOPHILS % (AUTO) 0.8 % (0.0-5.0); EOSINOPHILS % (AUTO) 2.3 % (0.0-8.0); HEMATOCRIT 28.6 % (36-48); LYMPHOCYTES % (AUTO) 10.8 % (21.0-51.0); MEAN CORPUSCULAR HEMOGLOBIN 31.2 pg (27.0-33.0); MEAN CORPUSCULAR HGB CONC 32.5 g/dL (32.0-36.0); NEUTROPHILS % (AUTO) 73.5 % (40.0-77.0); PLATELET COUNT (AUTO) 176 K/uL (130-400); RED BLOOD CELL COUNT(AUTO) 2.98 MIL/uL (4.00-5.50); RED CELL DISTRIBUTION WIDTH 15.4 % (11.0-15.5); WHITE BLOOD COUNT (AUTO) 6.6 K/uL (4.8-10.8)
[2022-01-27 04:33] LABS: ALBUMIN 1.1 g/dL (3.5-5.0); BILIRUBIN,TOTAL 0.4 mg/dL (0.2-1.0); CREATININE 5.4 mg/dL (0.5-1.5); POTASSIUM 4.3 mmol/L (3.5-5.1)
[2022-01-27] MEDS: CARVEDILOL 3.125 MG TABLET PO SCH (08:00)
[2022-01-27] MEDS: PANTOPRAZOLE 40 MG TAB DR PO SCH (08:54)
[2022-01-27] MEDS: SEVELAMER HCL 800 MG TABLET PO SCH ×2 (08:54→16:34)
[2022-01-27] MEDS: ASPIRIN 81MG CHEW TAB PO SCH (08:54)
[2022-01-27] MEDS: CLOPIDOGREL 75MG TAB PO SCH (08:55)
[2022-01-27] MEDS: ZOSYN 3.375GM+NS 50ML 50 ML IV SCH ×2 (08:55→21:05)
[2022-01-27] MEDS: CILOSTAZOL 100 MG TAB PO SCH ×2 (08:55→21:06)
[2022-01-27] MEDS: MIDODRINE HCL 5 MG TABLET PO SCH (09:00)
[2022-01-27] MEDS ORDERED: MIDODRINE HCL 5 MG TABLET PO PRN (09:00)
[2022-01-27] MEDS: VANCOMYCIN 750MG VIAL IVPB SCH (10:11)
[2022-01-27] MEDS ORDERED: 0.9%NACL 50ML 50 ML IV ONE (20:19)
[2022-01-27] MEDS: METOPROLOL TARTRATE 25 MG TAB PO SCH (21:00)
[2022-01-27] MEDS: ATORVASTATIN 40 MG TABLET PO SCH (21:06)
[2022-01-28 03:18] VITALS: BP 106/50
[2022-01-28 04:21] LABS: BASOPHILS % (AUTO) 0.5 % (0.0-5.0); EOSINOPHILS % (AUTO) 1.2 % (0.0-8.0); LYMPHOCYTES % (AUTO) 11.8 % (21.0-51.0); MEAN CORPUSCULAR HEMOGLOBIN 30.3 pg (27.0-33.0); MEAN CORPUSCULAR HGB CONC 31.3 g/dL (32.0-36.0); MEAN CORPUSCULAR VOLUME 96.9 fL (79-99); MONOCYTES % (AUTO) 11.1 % (3.0-13.0); NEUTROPHILS % (AUTO) 74.9 % (40.0-77.0); PLATELET COUNT (AUTO) 203 K/uL (130-400); WHITE BLOOD COUNT (AUTO) 8.2 K/uL (4.8-10.8)
[2022-01-28 04:49] LABS: ALBUMIN 1.2 g/dL (3.5-5.0); BILIRUBIN,TOTAL 0.4 mg/dL (0.2-1.0); CREATININE 4.1 mg/dL (0.5-1.5); POTASSIUM 4.1 mmol/L (3.5-5.1); TOTAL PROTEIN, SERUM 5.6 g/dL (6.0-8.3)
[2022-01-28 08:00] VITALS: BP 98/46
[2022-01-28] MEDS: METOPROLOL TARTRATE 25 MG TAB PO SCH ×2 (08:32→21:20)
[2022-01-28] MEDS: SEVELAMER HCL 800 MG TABLET PO SCH ×2 (08:32→17:30)
[2022-01-28] MEDS: PANTOPRAZOLE 40 MG TAB DR PO SCH (08:32)
[2022-01-28] MEDS: CILOSTAZOL 100 MG TAB PO SCH ×2 (08:33→21:19)
[2022-01-28] MEDS: CLOPIDOGREL 75MG TAB PO SCH (08:33)
[2022-01-28] MEDS: ASPIRIN 81MG CHEW TAB PO SCH (08:34)
[2022-01-28] MEDS: MIDODRINE HCL 5 MG TABLET PO SCH (08:48)
[2022-01-28 11:58] VITALS: BP 105/49
[2022-01-28 16:00] VITALS: BP 107/43
[2022-01-28 19:45] VITALS: BP 108/52
[2022-01-28] MEDS: ATORVASTATIN 40 MG TABLET PO SCH (21:19)
[2022-01-28 23:22] VITALS: BP 118/53
[2022-01-29 03:45] VITALS: BP 124/55
[2022-01-29] MEDS: MIDODRINE HCL 5 MG TABLET PO SCH (09:00)
[2022-01-29] MEDS: SEVELAMER HCL 800 MG TABLET PO SCH ×2 (10:06→18:20)
[2022-01-29] MEDS: PANTOPRAZOLE 40 MG TAB DR PO SCH (10:06)
[2022-01-29] MEDS: METOPROLOL TARTRATE 25 MG TAB PO SCH ×2 (10:07→21:29)
[2022-01-29] MEDS: CLOPIDOGREL 75MG TAB PO SCH (10:07)
[2022-01-29] MEDS: ASPIRIN 81MG CHEW TAB PO SCH (10:07)
[2022-01-29] MEDS: CILOSTAZOL 100 MG TAB PO SCH ×2 (10:08→21:29)
[2022-01-29 12:00] VITALS: BP 94/46
[2022-01-29] MEDS ORDERED: CALCIUM GLUC 1GM/10ML VIAL IVPB ONE (15:30)
[2022-01-29 16:00] VITALS: BP 105/58
[2022-01-29 19:43] VITALS: BP 96/40
[2022-01-29] MEDS: ATORVASTATIN 40 MG TABLET PO SCH (21:29)
[2022-01-30] VITALS (22 sets, daily range): BP systolic 102–132; BP diastolic 47–57
[2022-01-30] MEDS: ACETAMINOPHEN 325 MG TAB PO PRN ×2 (03:48→21:31)
[2022-01-30 04:16] LABS: BASOPHILS % (AUTO) 0.7 % (0.0-5.0); EOSINOPHILS % (AUTO) 2.6 % (0.0-8.0); HEMATOCRIT 30.9 % (36-48); LYMPHOCYTES % (AUTO) 10.8 % (21.0-51.0); MEAN CORPUSCULAR HGB CONC 31.7 g/dL (32.0-36.0); MEAN CORPUSCULAR VOLUME 97.8 fL (79-99); NEUTROPHILS % (AUTO) 75.2 % (40.0-77.0); PLATELET COUNT (AUTO) 193 K/uL (130-400); RED BLOOD CELL COUNT(AUTO) 3.16 MIL/uL (4.00-5.50); RED CELL DISTRIBUTION WIDTH 15.2 % (11.0-15.5); WHITE BLOOD COUNT (AUTO) 7.2 K/uL (4.8-10.8)
[2022-01-30 04:32] LABS: ALBUMIN 1.2 g/dL (3.5-5.0); BILIRUBIN,TOTAL 0.4 mg/dL (0.2-1.0); CREATININE 5.9 mg/dL (0.5-1.5); POTASSIUM 4.4 mmol/L (3.5-5.1); TOTAL PROTEIN, SERUM 5.8 g/dL (6.0-8.3)
[2022-01-30] MEDS: MIDODRINE HCL 5 MG TABLET PO SCH (07:44)
[2022-01-30] MEDS: CILOSTAZOL 100 MG TAB PO SCH ×2 (07:47→21:31)
[2022-01-30] MEDS: CLOPIDOGREL 75MG TAB PO SCH (07:47)
[2022-01-30] MEDS: SEVELAMER HCL 800 MG TABLET PO SCH ×2 (07:47→17:09)
[2022-01-30] MEDS: METOPROLOL TARTRATE 25 MG TAB PO SCH ×2 (07:47→21:31)
[2022-01-30] MEDS: PANTOPRAZOLE 40 MG TAB DR PO SCH (07:47)
[2022-01-30] MEDS: ASPIRIN 81MG CHEW TAB PO SCH (07:47)
[2022-01-30] MEDS: VANCOMYCIN 750MG VIAL IVPB SCH (13:29)
[2022-01-30] MEDS ORDERED: 0.9%NACL 1000ML 1,000 ML IV ONE (13:29)
[2022-01-30] MEDS: ATORVASTATIN 40 MG TABLET PO SCH (21:31)
[2022-01-31 04:15] VITALS: BP 126/63
[2022-01-31 07:10] VITALS: BP 115/57
[2022-01-31] MEDS: MIDODRINE HCL 5 MG TABLET PO SCH (07:28)
[2022-01-31] MEDS: CILOSTAZOL 100 MG TAB PO SCH ×2 (07:33→22:09)
[2022-01-31] MEDS: CLOPIDOGREL 75MG TAB PO SCH (07:34)
[2022-01-31] MEDS: SEVELAMER HCL 800 MG TABLET PO SCH ×2 (07:34→16:15)
[2022-01-31] MEDS: METOPROLOL TARTRATE 25 MG TAB PO SCH ×2 (07:34→22:09)
[2022-01-31] MEDS: ASPIRIN 81MG CHEW TAB PO SCH (07:34)
[2022-01-31] MEDS: PANTOPRAZOLE 40 MG TAB DR PO SCH (07:35)
[2022-01-31 10:53] VITALS: BP 105/47
[2022-01-31 15:00] VITALS: BP 112/52
[2022-01-31 19:24] VITALS: BP 108/54
[2022-01-31] MEDS: ATORVASTATIN 40 MG TABLET PO SCH (22:09)
[2022-01-31] MEDS: ACETAMINOPHEN 325 MG TAB PO PRN (22:16)
[2022-02-01] VITALS (21 sets, daily range): BP systolic 95–129; BP diastolic 47–92
[2022-02-01 04:38] LABS: BASOPHILS % (AUTO) 0.6 % (0.0-5.0); EOSINOPHILS % (AUTO) 1.7 % (0.0-8.0); HEMATOCRIT 28.3 % (36-48); LYMPHOCYTES % (AUTO) 10.5 % (21.0-51.0); MEAN CORPUSCULAR HEMOGLOBIN 31.1 pg (27.0-33.0); MEAN CORPUSCULAR HGB CONC 32.5 g/dL (32.0-36.0); MEAN CORPUSCULAR VOLUME 95.6 fL (79-99); MONOCYTES % (AUTO) 10.7 % (3.0-13.0); PLATELET COUNT (AUTO) 178 K/uL (130-400); RED BLOOD CELL COUNT(AUTO) 2.96 MIL/uL (4.00-5.50); RED CELL DISTRIBUTION WIDTH 14.8 % (11.0-15.5); WHITE BLOOD COUNT (AUTO) 6.6 K/uL (4.8-10.8)
[2022-02-01 05:11] LABS: ALBUMIN 1.2 g/dL (3.5-5.0); BILIRUBIN,TOTAL 0.3 mg/dL (0.2-1.0); CREATININE 5.3 mg/dL (0.5-1.5); MAGNESIUM 2.2 mg/dL (1.80-2.40); PHOSPHORUS 4.1 mg/dL (2.5-4.9); POTASSIUM 4.7 mmol/L (3.5-5.1); TOTAL PROTEIN, SERUM 5.6 g/dL (6.0-8.3)
[2022-02-01] MEDS: METOPROLOL TARTRATE 25 MG TAB PO SCH ×2 (09:00→21:41)
[2022-02-01] MEDS: SEVELAMER HCL 800 MG TABLET PO SCH ×2 (09:31→17:00)
[2022-02-01] MEDS ORDERED: 0.9% NACL 250ML 250 ML ONE (13:44)
[2022-02-01] MEDS: VANCOMYCIN 750MG VIAL IVPB SCH (14:26)
[2022-02-01] MEDS: CLOPIDOGREL 75MG TAB PO SCH (14:30)
[2022-02-01] MEDS: PANTOPRAZOLE 40 MG TAB DR PO SCH (14:30)
[2022-02-01] MEDS: ASPIRIN 81MG CHEW TAB PO SCH (14:30)
[2022-02-01] MEDS: CILOSTAZOL 100 MG TAB PO SCH ×2 (14:33→21:41)
[2022-02-01] MEDS: ATORVASTATIN 40 MG TABLET PO SCH (21:40)
[2022-02-02] VITALS (16 sets, daily range): BP systolic 100–125; BP diastolic 31–69
[2022-02-02 04:14] LABS: BASOPHILS % (AUTO) 0.7 % (0.0-5.0); EOSINOPHILS % (AUTO) 1.5 % (0.0-8.0); HEMATOCRIT 27.1 % (36-48); LYMPHOCYTES % (AUTO) 13.1 % (21.0-51.0); MEAN CORPUSCULAR HEMOGLOBIN 30.7 pg (27.0-33.0); MEAN CORPUSCULAR HGB CONC 32.1 g/dL (32.0-36.0); MEAN CORPUSCULAR VOLUME 95.8 fL (79-99); MONOCYTES % (AUTO) 9.3 % (3.0-13.0); PLATELET COUNT (AUTO) 189 K/uL (130-400); RED BLOOD CELL COUNT(AUTO) 2.83 MIL/uL (4.00-5.50); WHITE BLOOD COUNT (AUTO) 6.8 K/uL (4.8-10.8)
[2022-02-02 04:25] LABS: INR 1.12 (0.85-1.15); PROTHROMBIN TIME 12.1 SEC (9.6-11.6)
[2022-02-02 04:31] LABS: ALBUMIN 1.2 g/dL (3.5-5.0); BILIRUBIN,TOTAL 0.4 mg/dL (0.2-1.0); PHOSPHORUS 3.4 mg/dL (2.5-4.9); POTASSIUM 3.9 mmol/L (3.5-5.1); TOTAL PROTEIN, SERUM 5.5 g/dL (6.0-8.3)
[2022-02-02] MEDS ORDERED: LIDOCAINE HCL 1% MDV 50ML VIAL ONE (06:25)
[2022-02-02] MEDS ORDERED: BUPIVACAINE/PF 0.25% 30ML VIAL IJ ONE (06:25)
[2022-02-02] MEDS ORDERED: FENTANYL CITRATE PF 50 MCG/1 ML 2ML VIAL ONE (06:45)
[2022-02-02] MEDS ORDERED: MIDAZOLAM HCL 1 MG/ML 2ML VIAL ONE (06:45)
[2022-02-02] MEDS ORDERED: PROPOFOL 1000 MG/100 ML 100 ML IV ONE (06:50)
[2022-02-02] MEDS ORDERED: PHENYLEPHRINE HCL 10 MG/ML 1ML VIAL IV ONE (07:16)
[2022-02-02] MEDS ORDERED: EPHEDRINE SULFATE 50 MG/ML AMPULE ONE (07:16)
[2022-02-02] MEDS: SEVELAMER HCL 800 MG TABLET PO SCH ×2 (08:00→17:03)
[2022-02-02] MEDS: METOPROLOL TARTRATE 25 MG TAB PO SCH ×2 (08:37→21:20)
[2022-02-02] MEDS: ASPIRIN 81MG CHEW TAB PO SCH (08:37)
[2022-02-02] MEDS: CILOSTAZOL 100 MG TAB PO SCH ×2 (08:38→21:20)
[2022-02-02] MEDS: PANTOPRAZOLE 40 MG TAB DR PO SCH (08:38)
[2022-02-02] MEDS: CLOPIDOGREL 75MG TAB PO SCH (08:38)
[2022-02-02] MEDS: SODIUM HYPOCHLORITE 0.25% [HALF STRENGTH] 473 ML TOPICAL SOLN TP SCH (16:00)
[2022-02-02] MEDS: ACETAMINOPHEN WITH CODEINE 1 TAB TAB PO PRN (18:31)
[2022-02-02] MEDS: ALPRAZOLAM 0.25 MG TABLET PO PRN (21:20)
[2022-02-02] MEDS: ATORVASTATIN 40 MG TABLET PO SCH (21:21)
[2022-02-02] MEDS ORDERED: MORPHINE 4 MG SYG ONE (21:51)
[2022-02-02] MEDS ORDERED: MORPHINE 4 MG SYG IVP PRN (22:00)
[2022-02-03 04:40] VITALS: BP 107/49
[2022-02-03 05:23] LABS: HEMATOCRIT 30.1 % (36-48); MEAN CORPUSCULAR HGB CONC 31.9 g/dL (32.0-36.0); MEAN CORPUSCULAR VOLUME 97.1 fL (79-99); RED BLOOD CELL COUNT(AUTO) 3.1 MIL/uL (4.00-5.50); RED CELL DISTRIBUTION WIDTH 15.2 % (11.0-15.5); WHITE BLOOD COUNT (AUTO) 8.5 K/uL (4.8-10.8)
[2022-02-03 05:52] LABS: CREATININE 5.1 mg/dL (0.5-1.5); MAGNESIUM 2.2 mg/dL (1.80-2.40); PHOSPHORUS 4.3 mg/dL (2.5-4.9); POTASSIUM 4.5 mmol/L (3.5-5.1)
[2022-02-03 08:00] VITALS: BP 99/53
[2022-02-03] MEDS: PANTOPRAZOLE 40 MG TAB DR PO SCH (09:19)
[2022-02-03] MEDS: ASPIRIN 81MG CHEW TAB PO SCH (09:19)
[2022-02-03] MEDS: SEVELAMER HCL 800 MG TABLET PO SCH (09:19)
[2022-02-03] MEDS: CLOPIDOGREL 75MG TAB PO SCH (09:20)
[2022-02-03] MEDS: CILOSTAZOL 100 MG TAB PO SCH (09:20)
[2022-02-03] MEDS: SODIUM HYPOCHLORITE 0.25% [HALF STRENGTH] 473 ML TOPICAL SOLN TP SCH (09:20)
[2022-02-03] MEDS: ACETAMINOPHEN WITH CODEINE 1 TAB TAB PO PRN (09:30)
[2022-02-03 12:00] VITALS: BP 111/48
[2022-02-03 16:00] VITALS: BP 109/53
== END 2022-02-03 17:57 | DRG 239 ==
LOC: EDH 18:00 → OBSVTOIN 19:10 → EDHIP 19:10 → 3AH 01-14 00:34 → 2DH 01-25 16:54 → 3AH 02-01 01:37
PROVIDERS: ADMIT Internal Medicine Critical Care Medicine; ATTEND Internal Medicine Critical Care Medicine
PROC: 5A1D70Z Performance of Urinary Filtration, Intermittent, Less than 6 Hours Per Day (ICD-10-PCS; 2022-01-14)
PROC: 5A1D70Z Performance of Urinary Filtration, Intermittent, Less than 6 Hours Per Day (ICD-10-PCS; 2022-01-16)
PROC: 5A1D70Z Performance of Urinary Filtration, Intermittent, Less than 6 Hours Per Day (ICD-10-PCS; 2022-01-17)
PROC: B41D1ZZ Fluoroscopy of Aorta and Bilateral Lower Extremity Arteries using Low Osmolar Contrast (ICD-10-PCS; 2022-01-17)
PROC: 5A1D70Z Performance of Urinary Filtration, Intermittent, Less than 6 Hours Per Day (ICD-10-PCS; 2022-01-18)
PROC: 5A1D70Z Performance of Urinary Filtration, Intermittent, Less than 6 Hours Per Day (ICD-10-PCS; 2022-01-20)
PROC: B41G1ZZ Fluoroscopy of Left Lower Extremity Arteries using Low Osmolar Contrast (ICD-10-PCS; 2022-01-20)
PROC: B41C1ZZ Fluoroscopy of Pelvic Arteries using Low Osmolar Contrast (ICD-10-PCS; 2022-01-20)
PROC: B41F1ZZ Fluoroscopy of Right Lower Extremity Arteries using Low Osmolar Contrast (ICD-10-PCS; 2022-01-20)
PROC: 5A1D70Z Performance of Urinary Filtration, Intermittent, Less than 6 Hours Per Day (ICD-10-PCS; 2022-01-23)
PROC: 5A1D70Z Performance of Urinary Filtration, Intermittent, Less than 6 Hours Per Day (ICD-10-PCS; 2022-01-25)
PROC: 047M3DZ Dilation of Right Popliteal Artery with Intraluminal Device, Percutaneous Approach (ICD-10-PCS; principal; 2022-01-27)
PROC: 047K3DZ Dilation of Right Femoral Artery with Intraluminal Device, Percutaneous Approach (ICD-10-PCS; 2022-01-27)
PROC: 047M3ZZ Dilation of Right Popliteal Artery, Percutaneous Approach (ICD-10-PCS; 2022-01-27)
PROC: 047P3ZZ Dilation of Right Anterior Tibial Artery, Percutaneous Approach (ICD-10-PCS; 2022-01-27)
PROC: B41C1ZZ Fluoroscopy of Pelvic Arteries using Low Osmolar Contrast (ICD-10-PCS; 2022-01-27)
PROC: 5A1D70Z Performance of Urinary Filtration, Intermittent, Less than 6 Hours Per Day (ICD-10-PCS; 2022-01-27)
PROC: 5A1D70Z Performance of Urinary Filtration, Intermittent, Less than 6 Hours Per Day (ICD-10-PCS; 2022-01-30)
PROC: 5A1D70Z Performance of Urinary Filtration, Intermittent, Less than 6 Hours Per Day (ICD-10-PCS; 2022-02-01)
PROC: 0JBR0ZZ Excision of Left Foot Subcutaneous Tissue and Fascia, Open Approach (ICD-10-PCS; 2022-02-02)
PROC: 0Y6M0Z9 Detachment at Right Foot, Partial 1st Ray, Open Approach (ICD-10-PCS; 2022-02-02)
PROC: 0Y6M0ZB Detachment at Right Foot, Partial 2nd Ray, Open Approach (ICD-10-PCS; 2022-02-02)
PROC: 0Y6M0ZC Detachment at Right Foot, Partial 3rd Ray, Open Approach (ICD-10-PCS; 2022-02-02)
PROC: 0Y6M0ZD Detachment at Right Foot, Partial 4th Ray, Open Approach (ICD-10-PCS; 2022-02-02)
PROC: 0Y6M0ZF Detachment at Right Foot, Partial 5th Ray, Open Approach (ICD-10-PCS; 2022-02-02)
DX: E11.52 Type 2 diabetes mellitus with diabetic peripheral angiopathy with gangrene (principal); E43 Unspecified severe protein-calorie malnutrition; N18.6 End stage renal disease; L03.116 Cellulitis of left lower limb; I70.92 Chronic total occlusion of artery of the extremities; L03.115 Cellulitis of right lower limb; I12.0 Hypertensive chronic kidney disease with stage 5 chronic kidney disease or end stage renal disease; N39.0 Urinary tract infection, site not specified; M86.8X7 Other osteomyelitis, ankle and foot; I96 Gangrene, not elsewhere classified; E11.69 Type 2 diabetes mellitus with other specified complication; I70.235 Atherosclerosis of native arteries of right leg with ulceration of other part of foot; I70.245 Atherosclerosis of native arteries of left leg with ulceration of other part of foot; L97.529 Non-pressure chronic ulcer of other part of left foot with unspecified severity; L97.519 Non-pressure chronic ulcer of other part of right foot with unspecified severity; Z99.2 Dependence on renal dialysis; E11.621 Type 2 diabetes mellitus with foot ulcer; E11.22 Type 2 diabetes mellitus with diabetic chronic kidney disease; Z20.822 Contact with and (suspected) exposure to COVID-19; Z83.3 Family history of diabetes mellitus; Z82.49 Family history of ischemic heart disease and other diseases of the circulatory system; E03.9 Hypothyroidism, unspecified; E66.9 Obesity, unspecified; E78.00 Pure hypercholesterolemia, unspecified; E78.5 Hyperlipidemia, unspecified; I25.10 Atherosclerotic heart disease of native coronary artery without angina pectoris; D64.9 Anemia, unspecified; B96.20 Unspecified Escherichia coli [E. coli] as the cause of diseases classified elsewhere; I25.5 Ischemic cardiomyopathy; I48.0 Paroxysmal atrial fibrillation; I83.019 Varicose veins of right lower extremity with ulcer of unspecified site; I83.029 Varicose veins of left lower extremity with ulcer of unspecified site; Z79.899 Other long term (current) drug therapy; Z79.4 Long term (current) use of insulin; Z68.33 Body mass index [BMI] 33.0-33.9, adult
CPT/HCPCS: 36246; 36247; 36415; 37226; 37228; 71045; 71250; 73630; 75635; 75710; 75716; 80048; 80053; 80061; 80202; 81001; 82948; 83036; 83605; 83735; 84100; 84145; 85025; 85027; 85347; 85610; 85730; 86704; 86706; 86850; 86900; 86901; 86923; 87040; 87070; 87076; 87077; 87088; 87186; 87205; 87340; 87635; 90935; 93005; 93306; 93923; 93925; 93970; 99152; 99156; 99157; C1769; C1887; C1893; C1894; G0378; J1644; J2175; J2250; J2270; J2370; J2543; J2704; J3010; J3370; J3490; J7030; J7050; Q9967